=== PATIENT | male | born 1930 | race Caucasian/White ===

== ENCOUNTER 2017-02-16 19:48 | Inpatient (IN) ==
[2017-02-16] MEDS ORDERED: NS 1,000 ML ONE (20:36)
--- NOTE | 2017-02-16 20:37 | Diag Imaging Result Doc PS360 ---
EXAM: CHEST-PORTABLE - 02/16/2017 HISTORY: sepsis TECHNIQUE: Portable chest 2024 COMPARISON: None. FINDINGS: Inspiration is somewhat shallow. There is mild subsegmental atelectasis at the lung bases. There is no consolidation, pleural effusion, or pneumothorax identified. Heart size difficult to assess due to the shallow inspiration but is probably upper normal. IMPRESSION: Somewhat shallow inspiration with mild basilar subsegmental atelectasis. No evidence of pneumonia. Electronically signed by Duane Wright 02/16/2017 8:35 PM
[2017-02-16 20:38] LABS: ALLEN TEST YES; BE 0.3 mmoll (-3.0-3.0); BLOOD TYPE ARTERIAL; DRAW SITE R RADIAL; METHB 0.6 % (0.0-1.5); MODALITY CANNULA; O2(CT) 18.5 mL/dL (15.0-23.0); PCO2(98.6) 32 mmHg (35-45); PO2(98.6) 93 mmHg (60-100); SAMPLE BLOOD; THB 13.6 g/dL (11.5-17.4); pH(98.6) 7.47 (7.35-7.45)
[2017-02-16 20:46] LABS: BASO% 0.1 % (0.0-0.8); EOS# 0.08 X1000 (0.0-0.7); EOS% 0.6 % (0.0-10.0); HEMATOCRIT 40.2 % (42.0-52.0); HEMOGLOBIN 13.8 g/dL (14.0-18.0); IMM GRAN% 0.8 % (0.0-0.5); LYMPH# 0.37 X1000 (1.2-3.4); LYMPH% 2.8 % (20.5-51.1); MANUAL DIFF NEEDED? NO; MCH 33.7 PG (27-31); MCHC 34.3 g/dL (33-37); MCV 98.3 FL (81-99); MONO# 0.64 X1000 (0.11-0.59); MONO% 4.8 % (1.7-9.3); MPV 12.8 FL (7.4-10.4); NEUT% 90.9 % (42.2-75.2); PLT 95 X1000 (130-400); RBC 4.09 XMIL (4.7-6.1)
[2017-02-16 21:10] LABS: ALBUMIN 3.7 g/dL (3.5-5.0); CALCIUM 8.6 mg/dL (8.8-10.2); TOTAL BILIRUBIN 0.52 mg/dL (0.20-1.00)
[2017-02-16] MEDS ORDERED: ZOSYN 3.375 GM in NS 50 ML IV ONE (21:17)
[2017-02-16] MEDS ORDERED: LR 1,000 ML IV ONE ×3 (21:21→21:24)
[2017-02-16] MEDS ORDERED: LR 500 ML IV ONE (21:25)
[2017-02-16 21:35] LABS: URINE MICRO REVIEW NEEDED? NO; URINE SOURCE CATH
[2017-02-16 21:58] LABS: BILIRUBIN URINE NEGATIVE (NEGATIVE); BLOOD URINE MODERATE (NEGATIVE); COLOR YELLOW; GLUCOSE URINE NEGATIVE (NEGATIVE); LEUKOCYTES URINE MODERATE (NEGATIVE); NITRITE URINE NEGATIVE (NEGATIVE); PH URINE 5.5; PROTEIN URINE 50 mg/dL (NEGATIVE); TURBIDITY URINE HAZY (CLEAR); UR EPITHELIAL CELLS <10 /HPF (<10); URINE BACTERIA 4+ /HPF; URINE CULTURE NEEDED? YES; URINE RBC <10 /HPF (<10); UROBILINOGEN URINE NORMAL (NORMAL)
--- NOTE | 2017-02-16 22:02 | Diag Imaging Result Doc PS360 ---
EXAM: CT ABDOMEN/PELVIS W/O CONTRAST - 02/16/2017 HISTORY: distended abd- failed outpt UTI rx TECHNIQUE: Without contrast per request the referring provider. Low-dose protocol. COMPARISON: None. FINDINGS: There is an 8 mm stone in the proximal left ureter distal to the ureteropelvic junction. There is associated mild hydronephrosis with perinephric edema on the left. There is a tiny nonobstructing stone in the upper left kidney. There are small nonobstructing stones in the right kidney. There is no right hydronephrosis. There is a Jose catheter in urinary bladder. The urinary bladder chen appear diffusely thickened there is haziness of perivesicular fat. The possibility of urinary bladder cystitis cannot be excluded. There are no substantial analysis of the liver, spleen, or right adrenal gland identified. There is mild enlargement of the left adrenal gland. There is a 3.6 x 3.4 cm cystic appearing lesion which arises at the pancreatic body. The pancreas is otherwise somewhat atrophic. There are no calcified gallstones or pericholecystic inflammation identified. There are nonspecific small retroperitoneal lymph nodes. There are atherosclerotic calcifications noted. There are lumbar spine degenerative changes noted, multilevel spinal stenosis. There is no evidence of bowel obstruction. There is a moderate amount retained fecal debris in the colon and rectum suggesting constipation. There is colonic diverticulosis which is most prominent at the distal descending and proximal sigmoid colon. There is no evidence of diverticulitis. There is no free air, substantial free fluid, or abscess identified. IMPRESSION: 8 mm stone in proximal left ureter with mild left hydronephrosis and perinephric edema. Nonobstructing stones in bilateral kidneys. Probable urinary bladder cystitis. 3.6 x 3.4 cm cystic lesion arising at pancreatic body. Mild enlargement of left adrenal gland. Constipation. Uncomplicated colonic diverticulosis. Atherosclerotic calcifications. Lumbar spine degenerative changes with multilevel spinal stenosis. Electronically signed by Duane Wright 02/16/2017 10:00 PM
[2017-02-16] MEDS ORDERED: NS 1,000 ML IV ONE ×3 (22:09→22:15)
--- NOTE | 2017-02-16 22:19 | SEPSIS: TISSUE PERFUSION ASSMT ---
Sepsis: Tissue Perfusion Assmt - Physical Exam Assessment Date: 02/16/17 Time Assessment Initialized: 22:00 Vital Signs: Last Vital Signs Temp 102.6 F H 02/16/17 20:32 Pulse 91 H 02/16/17 20:32 Resp 32 H 02/16/17 20:32 BP 130/56 02/16/17 20:32 Pulse Ox 98 02/16/17 20:32 Height 5 ft 9 in Weight 240 lb Lung Sounds:: lungs clear Heart Sounds:: Regular Capillary Refill Time: Greater Than 2 Seconds Peripheral Pulse Evaluation:: radial (R): 1+, radial (L): 1+, dorsalis-pedis (R) : 1+, dorsalis-pedis (L): 1+, posterior tibialis (R): 0, posterior tibialis (L) : 0 Skin Exam:: pale - Impression Impression:: Tissue Perfusion Adequate - Plan Plan:: See Orders
[2017-02-16] MEDS ORDERED: MERREM 1 GM in NS 50 ML IV ONE (23:00)
[2017-02-16] MEDS ORDERED: ZOFRAN IV PRN (23:38)
[2017-02-16] MEDS ORDERED: TYLENOL PO PRN (23:38)
--- NOTE | 2017-02-17 02:55 | HISTORY AND PHYSICAL ---
A patient of Dr. Casey Peres. REASON FOR ADMISSION: Worsening confusion and weakness, and fever today. HISTORY OF PRESENT ILLNESS: Mr. Ja Pate is an 86-year-old man with a past medical history of hypertension, hypothyroidism, BPH, coronary artery disease, possible CHF, and hyperlipidemia who was brought in today by his after she noticed that her had become progressively weak over the last week or so. He has been treated on 3 separate occasions for a urinary tract infection with 3 different antibiotics by his primary care physician whom he saw today. While he was there, he was noted to be more confused (patient also has a history of mild dementia). He was then sent from the office home but by the time they got home, he could not get out of the car. He had a fever and he started having dry heaving episodes. At that juncture, they brought him to the ER. On arrival, his blood pressure was in the 90s/50 range. The patient also developed a fever on arrival to the ER. No chills. Unfortunately, there was no one at bedside and most of his history is obtained by the chart, the nurse taking care of him, and the ER physician. The patient is unable to give me any clear cut history. The only complaint he has per my review of systems is that he has a dry mouth. He feels thirsty and weak but he denies any pain or any other complaints. Thus, review of systems was extremely limited due to patient's cognition. There is no family at bedside to furnish me with any more information. ALLERGIES: Sulfa. MEDICATIONS: List not available at this time but I did look at the bottles and I noticed that he takes things such as Ranexa, Isordil, Zocor, levothyroxine, finasteride, terazosin, Diovan, hydrochlorothiazide. The patient has recently completed a course of Macrobid. FAMILY HISTORY: Could not be obtained. SOCIAL HISTORY: We we know he lives with his . He does not smoke, drink, or use drugs at this time. He usually gets by using a cane and walker. LAB WORK: The patient's chest film shows poor inspiratory effort but no overt infiltrate. CT scan of the abdomen shows an 8 mm stone in the left ureter with some hydronephrosis. There are also notable findings suggestive of cystitis of the bladder. He has a 3 x 3 cystic lesion of the pancreas, mild left adrenal enlargement, and constipation. EKG showed normal sinus rhythm with QT prolongation. Other lab work, troponin is 0.018. Lactate is less than 0.2. BUN 58, creatinine 3.5 (baseline is usually 1.6), sodium 135, glucose 173, calcium 8.6. Urinalysis is pending. Blood gas 7.47, pCO2 32, PO2 93 but the lactate here was 3.2. This is on 40%. EXAMINATION: General: Morbidly obese, elderly, man who is not in acute distress. Lying flat on his back. He is confused He is only oriented to person. Vital Signs: Temperature is 102.6 degrees, heart rate is 91, respirations initially were 32 in the ER but when I saw him were 24, blood pressure is 130/56, and 98% on 2 L. Psychiatric: His affect is somewhat flat. He is not depressed. His speech is clear. He does display evidence of bradyphrenia. HEENT: Head is normocephalic and atraumatic. Eyes, RADHA, EOMI. He is anicteric, not pale. ENT and oropharyngeal exam is notable for severe xerostomia. No oropharyngeal exudates. No central cyanosis. Neck: Short and thick. No JVD, carotid bruit, or thyromegaly. Skin: He has noticeable decreased skin turgor. There is moderate to severe decreased skin turgor. There is no acute rash, lesions, erythema. Chest: Clear to auscultation with good air entry in both lung montesinos. Cardiovascular: First and second heart sounds heard. No gallops, murmurs, or rubs. Rhythm is regular and tachycardic. Abdomen: Protuberant and soft. No focal areas of tenderness. No masses. Bowel sounds are hypoactive. Rectal: Examination is deferred at this time. Extremities: Patient has 1+ pitting edema up to the knee. Chronic hypopigmented changes of the shins. Pulses distally in all extremities are rated about 1+ and they are symmetrical. He has evidence of mild peripheral cyanosis in his fingers and distally are slightly cool with somewhat poor capillary refill. No clubbing. Neurological Examination: No focal deficits. No asterixis noted. Limited exam due to patient's cognition. No gross cranial nerve defects noted. Musculoskeletal: Examination is grossly normal. ASSESSMENT: 1. Urinary tract infection, recurrent. 2. Early sepsis. 3. Acute on chronic kidney injury. 4. Hypertensive heart and kidney disease. 5. Coronary artery disease. 6. Dementia. 7. Benign prostatic hypertrophy. 8. Hyperlipidemia. 9. Urolithiasis with left hydronephrosis. PLAN: We will consult Dr. Pate and Dr. Tolliver to address patient's obstructive uropathy and the recurrent urinary tract infection respectively. We will start patient on Merrem just in case patient has an ESBL pathogen, being that the patient has been treated with 3 different antibiotics without improvement. Follow up urine and blood cultures. Start patient on 30 mL/kg fluid to address early sepsis and then cautiously decrease the rate depending on his response and his urine output so that he does not go into pulmonary edema. We will withhold any home medications that are nephrotoxic which will include the valsartan and Ranexa. Patient has QT prolongation which could be attributed to the cardiotoxic effects of Ranexa. This will be held indefinitely until the patient gets better. We will also consider consulting a hand candy molder if the renal function does not improve in the next 48 hours. Urine indices have been sent and will need to be followed. Patient is borderline critical and for now, we will get him a room in the stepdown unit but if he deteriorates, he will need to go to the ICU. Critical care time on this patient will be estimated to be 40 minutes. cc: MD Casey Gallagher MD
[2017-02-17] MEDS: NS 1,000 ML IV SCH ×3 (03:30→16:27)
--- NOTE | 2017-02-17 03:37 | PROVIDER DOCUMENTATION ---
This chart was entered by Diamond Cazares Scribe, acting as scribe for Mike Humphreys MD. HPI-Neurological Disorder - General Chief Complaint: Altered Mental Status Stated Complaint: AMS Time Seen by Provider: 02/16/17 20:16 Source: family Allergies/Adverse Reactions: Patient Allergies Allergy/AdvReac Type Severity Reaction Status Date / Time Sulfa (Sulfonamide AdvReac Unknown Verified 02/16/17 21:13 Antibiotics) Home Medications: Home Medication List Medication Instructions Recorded Confirmed Last Taken Type Dutasteride 0.5 mg PO DAILY 02/16/17 02/16/17 02/16/17 History Famotidine 40 mg PO BID 02/16/17 02/16/17 02/16/17 History Furosemide 40 mg PO 3-4XDAY PRN 02/16/17 02/16/17 02/16/17 History Isosorbide Mononitrate E.r. [Imdur] 30 mg PO DAILY 02/16/17 02/16/17 02/16/17 History Levothyroxine [Synthroid] 50 microgm PO DAILY 02/16/17 02/16/17 02/16/17 History Ranolazine [Ranexa] 500 mg PO BID 02/16/17 02/16/17 02/16/17 History SIMVAstatin [Zocor] 40 mg PO QHS 02/16/17 02/16/17 02/16/17 History Sertraline [Zoloft] 50 mg PO DAILY 02/16/17 02/16/17 02/16/17 History Solifenacin Succinate [Vesicare] 5 mg PO BID 02/16/17 02/16/17 02/16/17 History Terazosin [Hytrin] 10 mg PO HS 02/16/17 02/16/17 02/16/17 History Terbinafine [Lamisil] 250 mg PO DAILY 02/16/17 02/16/17 02/16/17 History Valsartan/Hydrochlorothiazide 1 each PO DAILY 02/16/17 02/16/17 02/16/17 History [Valsartan-Hctz 160-12.5 mg Tab] - History of Present Illness-Neuro Nature of Presenting Problem: 86 year old M presents to the ED with a cc of altered mental status per . Pt has a hx of dementia but states that it is worse tonight. PT is being treated by PCP with Macrobid for a UTI. states yesterday, pt developed nausea, beltching and subjective fevers after dinner and that is when she realized he was not recognizing the family. Pt, per has continually worsened with his altered mental status. Severity: reports: moderate Onset/Duration: reports: 24 hours ago Timing: reports: still present, getting worse Character of Altered Mental Status: reports: disoriented Any recent trauma/injury?: reports: none Cognitive Baseline: alert but disoriented Similar Symptoms Previously?: No Recently seen or treated by another doctor?: No Review of Systems - Adult - REVIEW OF SYSTEMS - ADULT ROS:: ROS per family Constitutional: reports: fever. denies: chills Eyes: reports: no symptoms reported Ears, Nose, Mouth & Throat: reports: no symptoms reported Cardiovascular: denies: chest pain, palpitations Respiratory: denies: cough, shortness of breath Gastrointestinal: reports: see HPI, nausea. denies: abdominal pain, vomiting Genitourinary: reports: see HPI, other (recent treatment of UTi.) Musculoskeletal: denies: muscle aches, muscle weakness Integumentary: denies: skin sores/ulcer, skin thickening Neurological: reports: other (altered mental status). denies: slurred speech Psychiatric: reports: no symptoms reported Endocrine: reports: no symptoms reported Hematologic/Lymphatic: reports: no symptoms reported Allergic/Immunologic: reports: no symptoms reported All Other Systems: Reviewed and Negative Past History - Adult - PAST MEDICAL HISTORY-ADULT Review of Records: reports: Nursing Assessment Review, Medications Reviewed Major Childhood Illnesses: reports: denies history Cardiovascular: reports: CHF, HTN, hyperlipidemia Respiratory: reports: denies history Gastrointestinal: reports: GERD Obstetrical/Gynecological: reports: denies history Genitourinary: reports: denies history Musculoskeletal: reports: denies history Neurological: reports: dementia Endocrine/Immune: reports: thyroid disorder Other Conditions: reports: denies history - PRIOR SURGERIES/PROCEDURES Surgical/Procedure History: reports: none - IMMUNIZATION STATUS Childhood Immunizations: See Nurse Assessment Flu Vaccine: See Nurse Assessment - FAMILY HISTORY Family History: reviewed, not pertinent - SOCIAL HISTORY Smoking: quit greater than 1 year Substance Use: none/never Alcohol Use Frequency: never Living Situation: family Physical Exam- Neurological - Physical Exam-Neuro Initial Vital Signs Reviewed: Yes General Appearance: alert, other (alert to person and place) Eye Exam: bilateral eye: PERRL Respiratory: chest non-tender, crackles (bilateral basilar) Cardiovascular: tachycardia. negative: irregularly irregular Abdominal Exam: distended Extremity: pedal edema (2+ pitting to bilateral lower extremities), other (2cm cut on bilateral rucker. +2 pitting edema b.l -- chronic venous changes, brown pigmentation) hand i blocker Exam: negative: facial asymmetry Neurologic: grossly normal Integumentary: warm, other (chronic venous changes to bilateral legs) Progress - PLAN OF CARE/RESULTS Progress/Plan/Lab Results: Vital Signs - 8 hr 02/16/17 20:32 Temperature 102.6 F H Pulse Rate 91 H Respiratory Rate 32 H Blood Pressure 130/56 O2 Sat by Pulse Oximetry 98 Laboratory Results - last 24 hr 02/16/17 02/16/17 02/16/17 20:00 20:00 20:00 WBC 13.32 H RBC 4.09 L Hgb 13.8 L Hct 40.2 L MCV 98.3 MCH 33.7 H MCHC 34.3 RDW Std Deviation 11.9 Plt Count 95 L MPV 12.8 H Immature Gran % (Auto) 0.8 H Neut % (Auto) 90.9 H Lymph % (Auto) 2.8 L [place] % (Auto) 4.8 Eos % (Auto) 0.6 Baso % (Auto) 0.1 Immature Gran # (Auto) 0.10 H Neut # (Auto) 12.12 H Lymph # (Auto) 0.37 L [place] # (Auto) 0.64 H Eos # (Auto) 0.08 Baso # (Auto) 0.01 Specimen Type Sample Site pH pCO2 pO2 HCO3 Base Excess Oxyhemoglobin ABG O2 Sat (Calculated) ABG O2 Saturation ABG Carboxyhemoglobin ABG Methemoglobin Shaji Test A-a O2 Difference Total Hemoglobin Lactate Liter Flow Blood Gas Modality FiO2 % Sodium 135 L Potassium 4.0 Chloride 94 L Carbon Dioxide 22 L Anion Gap 19 BUN 58 H Creatinine 3.5 H Estimated GFR/1.73 m2 17 BUN/Creatinine Ratio 17 Glucose 173 H POC Glucose Calculated Osmolality 290 Calcium 8.6 L Total Bilirubin 0.52 AST 24 ALT 16 Alkaline Phosphatase 109 Troponin T 0.018 Total Protein 6.0 L Albumin 3.7 Globulin 2.3 Albumin/Globulin Ratio 1.6 Plasma Lactate Urine Source Urine Color Urine Turbidity Urine pH Ur Specific [place] Urine Protein Ur Glucose (Stick) Ur Ketones (Stick) Urine Blood Urine Nitrite Urine Bilirubin Urobilinogen Dipstick Urine Leukocytes Urine WBC (Auto) Urine RBC (Auto) U Epithel Cells (Auto) Urine Bacteria (Auto) 02/16/17 02/16/17 02/16/17 20:00 20:11 20:28 WBC RBC Hgb Hct MCV MCH MCHC RDW Std Deviation Plt Count MPV Immature Gran % (Auto) Neut % (Auto) Lymph % (Auto) [place] % (Auto) Eos % (Auto) Baso % (Auto) Immature Gran # (Auto) Neut # (Auto) Lymph # (Auto) [place] # (Auto) Eos # (Auto) Baso # (Auto) Specimen Type ARTERIAL Sample Site R RADIAL pH 7.47 H pCO2 32 L pO2 93 HCO3 25.1 Base Excess 0.3 Oxyhemoglobin 96.1 ABG O2 Sat (Calculated) 18.5 ABG O2 Saturation 97.0 ABG Carboxyhemoglobin 0.30 ABG Methemoglobin 0.6 Shaji Test YES A-a O2 Difference 152.0 Total Hemoglobin 13.6 Lactate 3.20 H Liter Flow 5.0 Blood Gas Modality CANNULA FiO2 % 40.0 Sodium Potassium Chloride Carbon Dioxide Anion Gap BUN Creatinine Estimated GFR/1.73 m2 BUN/Creatinine Ratio Glucose POC Glucose 179 H Calculated Osmolality Calcium Total Bilirubin AST ALT Alkaline Phosphatase Troponin T Total Protein Albumin Globulin Albumin/Globulin Ratio Plasma Lactate < 0.2 L Urine Source Urine Color Urine Turbidity Urine pH Ur Specific [place] Urine Protein Ur Glucose (Stick) Ur Ketones (Stick) Urine Blood Urine Nitrite Urine Bilirubin Urobilinogen Dipstick Urine Leukocytes Urine WBC (Auto) Urine RBC (Auto) U Epithel Cells (Auto) Urine Bacteria (Auto) 02/16/17 20:43 WBC RBC Hgb Hct MCV MCH MCHC RDW Std Deviation Plt Count MPV Immature Gran % (Auto) Neut % (Auto) Lymph % (Auto) [place] % (Auto) Eos % (Auto) Baso % (Auto) Immature Gran # (Auto) Neut # (Auto) Lymph # (Auto) [place] # (Auto) Eos # (Auto) Baso # (Auto) Specimen Type Sample Site pH pCO2 pO2 HCO3 Base Excess Oxyhemoglobin ABG O2 Sat (Calculated) ABG O2 Saturation ABG Carboxyhemoglobin ABG Methemoglobin Shaji Test A-a O2 Difference Total Hemoglobin Lactate Liter Flow Blood Gas Modality FiO2 % Sodium Potassium Chloride Carbon Dioxide Anion Gap BUN Creatinine Estimated GFR/1.73 m2 BUN/Creatinine Ratio Glucose POC Glucose Calculated Osmolality Calcium Total Bilirubin AST ALT Alkaline Phosphatase Troponin T Total Protein Albumin Globulin Albumin/Globulin Ratio Plasma Lactate Urine Source CATH Urine Color YELLOW Urine Turbidity HAZY Urine pH 5.5 Ur Specific [place] 1.020 Urine Protein 50 A Ur Glucose (Stick) NEGATIVE Ur Ketones (Stick) TRACE A Urine Blood MODERATE A Urine Nitrite NEGATIVE Urine Bilirubin NEGATIVE Urobilinogen Dipstick NORMAL Urine Leukocytes MODERATE A Urine WBC (Auto) 10-20 A Urine RBC (Auto) <10 U Epithel Cells (Auto) <10 Urine Bacteria (Auto) 4+ Orders Category Date Time Status Admit - [facility] Routine AdmDCTranf 02/16/17 23:38 Ordered Activity - Up with Assistance ORDERED Care 02/16/17 23:38 Active Cardiac Monitoring DIRECTED Care 02/16/17 20:20 Active Intake and Output-Strict ORDERED Care 02/16/17 23:38 Active Notify MD of + Sepsis Screen NOW Care 02/16/17 20:46 Active Nursing- MD Consult Request ROUTINE Care 02/16/17 23:38 Active Nursing- MD Consult Request ROUTINE Care 02/16/17 23:38 Active Vital Signs Order Q 8-HR ASSESS Care 02/16/17 23:38 Active Physician/Provider Consults Routine Cons 02/16/17 23:38 Ordered Physician/Provider Consults Routine Cons 02/16/17 23:38 Ordered Renal Diet Diet 02/16/17 22:06 Active CHEST-PORTABLE [RAD] Stat Exams 02/16/17 20:[address] ABDOMEN/PELVIS W/O CONTRAST [CT] Stat Exams 02/16/17 21:26 Completed ABG [RESP] Routine Lab 02/16/17 20:28 Completed BLOOD CULTURE [BLDCUL] Stat Lab 02/16/17 20:00 Results CBC WITH DIFF [HEME] Routine Lab 02/17/17 06:00 Ordered CBC WITH ELECTRONIC DIFF [HEME] Stat Lab 02/16/17 20:00 Completed COMPREHENSIVE METABOLIC PANEL [CHEM] Routine Lab 02/17/17 06:00 Ordered COMPREHENSIVE METABOLIC PANEL [CHEM] Stat Lab 02/16/17 20:00 Completed LACTATE, PLASMA [CHEM] Stat Lab 02/16/17 20:00 Completed LACTATE, PLASMA [CHEM] Stat Lab 02/17/17 01:50 Completed PHOSPHORUS [CHEM] Stat Lab 02/16/17 22:11 Completed TROPONIN T Stat Lab 02/16/17 20:00 Completed TSH Stat Lab 02/16/17 23:38 Completed UA NIMS W/REFLEX CULT [URINALYSIS] Stat Lab 02/16/17 20:43 Completed UR CREAT RANDOM [URCHEM] Stat Lab 02/16/17 23:38 Uncollected UR SODIUM [URCHEM] Stat Lab 02/16/17 23:38 Uncollected URINE CULTURE [RM] Routine Lab 02/16/17 22:00 Received 0.9% Sodium Chloride Inj [Ns] 1,000 ml Med 02/16/17 20:36 Discontinued .ROUTE As Directed 0.9% Sodium Chloride Inj [Ns] 1,000 ml Med 02/16/17 23:38 Active IV 125 mls/hr 0.9% Sodium Chloride Inj [Ns] 1,000 ml Med 02/16/17 22:09 Discontinued IV 999 mls/hr 0.9% Sodium Chloride Inj [Ns] 1,000 ml Med 02/16/17 22:10 Discontinued IV 999 mls/hr 0.9% Sodium Chloride Inj [Ns] 1,000 ml Med 02/16/17 22:15 Discontinued IV 999 mls/hr Acetaminophen [Tylenol] Med 02/16/17 23:38 Active 650 mg PO Q6H PRN PRN Heparin Med 02/17/17 09:00 Active 5,000 unit SUBQ Q12HR Isosorbide Mononitrate E.r. [Imdur] Med 02/17/17 09:00 Discontinued 30 mg PO DAILY Lactated Ringers Inj [Lr] 1,000 ml Med 02/16/17 21:21 Discontinued IV 999 mls/hr Lactated Ringers Inj [Lr] 1,000 ml Med 02/16/17 21:24 Discontinued IV 999 mls/hr Lactated Ringers Inj [Lr] 1,000 ml Med 02/16/17 21:24 Discontinued IV 999 mls/hr Lactated Ringers Inj [Lr] 500 ml Med 02/16/17 21:25 Discontinued IV 999 mls/hr Meropenem [Merrem] 1 gm Med 02/16/17 23:00 Discontinued 0.9% Sodium Chloride Inj [Ns] 50 ml IV NOW Meropenem [Merrem] 1 gm Med 02/17/17 12:00 Active 0.9% Sodium Chloride Inj [Ns] 50 ml IV Q12H Ondansetron [Zofran] Med 02/16/17 23:38 Active 4 mg IV Q4H PRN PRN Piperacillin/Tazobactam [Zosyn] 3.375 gm Med 02/16/17 21:17 Discontinued 0.9% Sodium Chloride Inj [Ns] 50 ml IV NOW Transfer/Admit Order [TRANSFER] Routine Transfer 02/16/17 22:04 Completed Result Diagrams: 02/16/17 20:00 02/16/17 20:00 Departure - Departure Date of Disposition Decision: 02/16/17 Time of Disposition Decision: 21:30 DIAGNOSIS: Sepsis, UTI (urinary tract infection) Disposition: ADMITTED INPATIENT Certified Medical Emergency: Emergent Condition: Fair - Critical Care Note This patient required my direct & personal management of CC.: No Comments: sepsis protocol was started. IVF 30cc/kg was ordered. Pt was given zosyn.,,Case was presented to Dr Leon for admission Attestation - Physician/ JOANIE Attestation Patient care was provided by Advanced Practice Provider:: No The physician spent face to face time with patient:: Yes Advanced Practice Provider documentation review:: Supervising physician onsite and consulted in the evaluation and care of this patient. The physician did have a face to face encounter with the patient. This chart was documented by the indicated scribe, (Diamond Cazares Scribe) and accurately reflects the services I performed and decisions made by me, Mike Humphreys MD, as attested by the provider's signature.
[2017-02-17] MEDS ORDERED: NS 500 ML IV SCH ×2 (05:29→06:08)
[2017-02-17 06:03] LABS: BASO% 0.1 % (0.0-0.8); EOS# 0.16 X1000 (0.0-0.7); HEMOGLOBIN 12.3 g/dL (14.0-18.0); IMM GRAN# 0.59 X1000 (0.0-0.04); IMM GRAN% 3.7 % (0.0-0.5); LYMPH# 0.56 X1000 (1.2-3.4); LYMPH% 3.6 % (20.5-51.1); MANUAL DIFF NEEDED? YES; MCH 33.3 PG (27-31); MCHC 33.2 g/dL (33-37); MCV 100.3 FL (81-99); MONO# 0.59 X1000 (0.11-0.59); MONO% 3.7 % (1.7-9.3); NEUT% 87.9 % (42.2-75.2); PLT 64 X1000 (130-400); RBC 3.69 XMIL (4.7-6.1)
[2017-02-17] MEDS: LEVOPHED 8 MG in D5 1/2 NS 250 ML IV SCH ×2 (06:06→07:42)
[2017-02-17] MEDS ORDERED: NS 500 ML IV ONE (06:11)
[2017-02-17 06:19] LABS: ALBUMIN 3.2 g/dL (3.5-5.0); CALCIUM 8.2 mg/dL (8.8-10.2); POTASSIUM 4.3 mmol/L (3.5-5.1); TOTAL BILIRUBIN 0.51 mg/dL (0.20-1.00); TOTAL PROTEIN 5.4 g/dL (6.3-8.3)
[2017-02-17 07:30] LABS: BANDS 4 % (0-1); EOS 2 % (1-10); MONO 6 % (1-9)
[2017-02-17 07:31] LABS: LYMPHS 8 % (21-51)
--- NOTE | 2017-02-17 08:48 | CONSULTATION ---
DATE OF CONSULTATION: 02/17/2017 CONCLUSION: The patient has a gram-negative lorenzo urinary tract infection with an associated bacteremia due to the presence of a left ureteral stone. The patient has an altered mental status. I think this is due to his presumed sepsis. The patient has developed renal failure. I think again this is increased in part due to his acute infection and possible dehydration. RECOMMENDATIONS: I agree with decision to treat the patient with meropenem pending further culture results. The dose has been modified because of the patient's renal failure. DISCUSSION: The patient is unable provide a history. The history was taken from his . She reports to me that for the past 2-3 days he had an altered mental status. There was some coughing, some nausea with dry heaves. He also had fever and red face. He has had studies done in the emergency room[place] [address], hemoglobin 12.3 and platelet count 64,000. Creatinine is 4.2. GFR is 14, liver function studies are normal. Urinalysis shows white cells and bacteria. The patient's blood cultures are growing gram negative rods. The patient's urine culture is pending. Chest x-ray shows bibasilar atelectasis. CT scan of the abdomen and pelvis shows a left ureteral stone with the presence of hydronephrosis. Other stones are present in the kidneys as well. PAST MEDICAL HISTORY/REVIEW OF SYSTEMS: This was unobtainable from the patient. It was taken from his . Eyes and ears: Patient can see okay, but he has decreased hearing. Respiratory: The patient was not coughing or short of breath. Cardiac: No complaints of chest pain or palpitations. GI: The patient was having some nausea and dry heaves. He was not having diarrhea. : According to the the patient did not seem to have any urinary symptoms such as dysuria or flank pain. Bones, joints, muscles: No swollen joints or myalgias. Endocrine: Patient does not have diabetes but he does have thyroid disease. Neurologic: The patient's said that he has dementia. He does not have any loss of motor or sensory function. Integument: No rashes. PREVIOUS HOSPITALIZATIONS AND OPERATIONS: He was admitted as a child with mastoiditis. He once was admitted with back pain. MEDICAL DISEASES: Positive for hypertension, dementia, hyperlipidemia, sleep apnea, and benign prostatic hypertrophy. Patient also has decreased hearing. Hypothyroidism. INFECTIOUS DISEASE HISTORY: Negative for pneumonia and UTI. FAMILY HISTORY: Positive for hypertension, cancer and dementia. SOCIAL HISTORY: The patient is . He lives in [place]. ALLERGIES: He is allergic to sulfa. HOME MEDICATIONS: Include valsartan/hydrochlorothiazide, famotidine, VESIcare, Zoloft, Hytrin, dutasteride, Synthroid, Zocor, Imdur, furosemide, Lamisil and Ranexa. Patient is . He smokes cigarettes but stopped many years ago. He does not drink alcoholic beverages or abuse drugs. He does wear a CPAP mask at night. PHYSICAL EXAMINATION: Vital Signs: Temperature is 99.7 degrees. Pulse 76, respirations 22, blood pressure 70/57. General: Ill-appearing, elderly male. He does not appear to be in any acute distress. Head, eyes, ears, nose, and throat: He appeared to have some decrease in his hearing. He did track with his eyes. His face was erythematous. Neck: No meningismus. Lungs: Clear to auscultation. Cardiovascular: Heart rate is regular. Abdomen: Slightly protuberant. It is soft. There is no tenderness and there is no flank tenderness. Genitalia: Patient has a Jose catheter in place. Neurologic: Patient is awake. He was not oriented as to time or place. He did move his extremities to request. There was no tremor. Integument: No rash noted. Thank you for the consult. cc: Chandler Tolliver MD
[2017-02-17] MEDS ORDERED: IMDUR PO SCH (09:00)
--- NOTE | 2017-02-17 09:18 | CONSULTATION ---
DATE OF CONSULTATION: 02/17/2017 ATTENDING AND REFERRING PHYSICIAN: Hospitalist. HISTORY OF PRESENT ILLNESS: This 86-year-old male has been treated for urinary tract infections as an outpatient for the last several weeks. The patient is somewhat confused. His states he has had increased frequency and pelvic area pains. He became acutely ill yesterday and when seen in the emergency room, his blood pressure was in the 90/[address] stone search revealed an 8 mm, left proximal stone with moderate obstruction. Also noted were small nonobstructing bilateral renal stones and thickened bladder wall consistent with cystitis. Blood cultures were obtained and a Gram stain revealed gram negative rods. The patient has been followed in the [facility] for several years. He was last seen in November of 2016. His PSA at that time was 0.12. He has a nodule on the left side of his prostate. He had a prostate ultrasound and biopsies in 2012. He is currently on Avodart at 0.5 mg a day, Hytrin at 10 mg a day, and VESIcare 5 mg twice a day four urinary urgency. His creatinine was elevated at 4.2. The patient states he may feel a little better. He has never passed a kidney stone before. He states this is the 1st time he has ever had problems with urinary infections. PAST MEDICAL HISTORY: Hypertension, coronary artery disease, hypothyroidism, elevated cholesterol. CURRENT MEDICATIONS: Avodart, Hytrin, VESIcare, famotidine, Lasix, isosorbide, levothyroxine, Ranexa, Lamisil, valsartan/hydrochlorothiazide 160/12.5. PAST SURGICAL HISTORY: Teeth extraction, tonsillectomy, transrectal prostate ultrasound and biopsies. SOCIAL HISTORY: No tobacco or alcohol use. ALLERGIES: He is allergic to sulfa. REVIEW OF SYSTEMS: He states, along with his , that he is usually in good health. There is no history of diabetes, strokes, or seizures. PHYSICAL EXAMINATION: General: Obese, age apparent, normally developed, white male who is cooperative. HEENT: Normal for age. Lungs: Clear. Cardiovascular: Regular rate and rhythm. Abdomen: Obese, soft, nontender. No hepatosplenomegaly or masses. Normal bowel sounds. Back: No CVA tenderness. : Jose catheter in place. Uncircumcised male. Both testes are down. Small bilateral hydroceles. No inguinal hernias. Rectal Examination: Deferred. In November of 2016, about 60-70 g with a nodule on the left side. Extremities: No clubbing, cyanosis, or edema. Neurologic: No focal deficits. LABORATORY EVALUATION: He has a white count of 15.74, hemoglobin 12.3, hematocrit of 37, platelets are 64,000. Blood cultures and urine cultures are pending. The Gram stain from the blood culture had gram-negative rods. IMPRESSION: 1. Sepsis syndrome secondary to a urinary tract infection. 2. Bilateral nonobstructing renal stones. 3. An obstructing left proximal ureteral stone. PLAN: Cystoscopic exam, place left double-J stent. After his infection is resolved, schedule left extracorporeal shockwave lithotripsy. The planned procedure, benefits versus risks, possible complications, including bleeding, continued infection, need for further surgery were discussed with the patient and . They seemed to understand and desire to proceed. cc: Akil Pate MD
[2017-02-17] MEDS ORDERED: DIPRIVAN 1% ONE (09:36)
[2017-02-17] MEDS ORDERED: XYLOCAINE-MPF 2% ONE (09:37)
[2017-02-17] MEDS ORDERED: QUELICIN (DOSE) ONE (09:37)
[2017-02-17] MEDS ORDERED: ROBINUL ONE (09:37)
[2017-02-17] MEDS ORDERED: AMIDATE ONE (09:38)
[2017-02-17] MEDS ORDERED: PEPCID ONE (09:43)
[2017-02-17] MEDS ORDERED: EPHEDRINE ONE (09:57)
[2017-02-17] MEDS ORDERED: VERSED ONE (10:15)
[2017-02-17] MEDS ORDERED: NS 1,000 ML ONE ×2 (10:37→11:43)
--- NOTE | 2017-02-17 11:11 | Diag Imaging Result Doc PS360 ---
EXAM: CHEST-PORTABLE HISTORY: septic shock TECHNIQUE: AP portable at 1050 COMMENT: There is an endotracheal tube with its tip slightly below the thoracic inlet. The inspiration is suboptimal. No focal opacity is present to suggest pneumonia. The appearance of the chest has not changed appreciably since 02/16/2017. IMPRESSION: Stable chest. Electronically signed by Td Jo 02/17/2017 11:09 AM
--- NOTE | 2017-02-17 11:16 | Diag Imaging Result Doc PS360 ---
EXAM: FLUROSCOPY CYSTO HISTORY: PLACEMENT LT. STENT TECHNIQUE: A left ureteral stent was placed by Dr. Pate. COMMENT: No contrast was administered. IMPRESSION: Left ureteral stent placement. Electronically signed by Td Jo 02/17/2017 11:14 AM
[2017-02-17 11:20] LABS: ALLEN TEST YES; BE -10.5 mmoll (-3.0-3.0); BLOOD TYPE ARTERIAL; DRAW SITE R RADIAL; METHB 0.4 % (0.0-1.5); O2(CT) 15.8 mL/dL (15.0-23.0); PCO2(98.6) 44 mmHg (35-45); PO2(98.6) 68 mmHg (60-100); SAMPLE BLOOD; SAO2 93.1 % (95.0-100.0); SRATE 12 BPM; THB 12.1 g/dL (11.5-17.4); TVOL 700 mL
[2017-02-17 11:21] LABS: MODALITY VENTILATOR
[2017-02-17] MEDS ORDERED: LR 1,000 ML ONE ×2 (11:30→12:15)
--- NOTE | 2017-02-17 11:43 | OPERATIVE NOTE ---
PROCEDURE DATE: 02/17/2017 SURGEON: Akil Pate MD. PREOPERATIVE DIAGNOSIS: Septic syndrome secondary to urinary infection with an obstructing left proximal ureteral stone. POSTOPERATIVE DIAGNOSIS: Septic syndrome secondary to urinary infection with an obstructing left proximal ureteral stone. PROCEDURE PERFORMED: Cystoscopic exam, placement of left double-J stent. ANESTHESIA: General endotracheal. FINDINGS: Cystoscopic exam: Urethra-greater than 21-Upper Sorbian without stricture. Prostate-mild hypertrophy of the lateral lobes, elevated bladder neck, length approximately 4 cm. Bladder- normal ureteral orifices bilaterally. Grade 2-3 trabeculations. No papillary lesions, cellules or diverticula. After a wire was placed through the left ureter, a large amount of pus and brownish discharge occurred, indicating complete obstruction of the left kidney. INDICATION FOR PROCEDURE: This 86-year-old male developed lower abdominal pain and fever. He then developed confusion. Evaluation revealed urosepsis with an obstructing left proximal stone. DESCRIPTION OF PROCEDURE: After informed consent was obtained from the patient and family, and him receiving IV antibiotics, he was taken to the main OR cystoscopy room and placed in the supine position. General endotracheal anesthesia was achieved. He was then placed in a low lithotomy position, prepped and draped in the usual sterile fashion for a cystoscopic exam. A 21-Upper Sorbian cystoscope was passed through the patient's urethra, prostate, and into the bladder with findings noted above. A 0.035 Zip wire was passed through the cystoscope, engaged in the left ureteral orifice, and advanced up the ureter. After some manipulation, it was able to be pushed past the obstructing stone. Again, a large amount of pus and brownish debris came out around that wire. A 7-Upper Sorbian, 24 cm double-J stent was passed over the Zip wire and up into the kidney. The renal end was verified by fluoroscopic exam, bladder end directly visualized. The very cloudy brown efflux continued after the stent was placed. The bladder was left distended. The cystoscope was removed. A 16-Upper Sorbian Jose catheter was passed through the patient's urethra, prostate, and bladder without difficulty. Then 10 mL of sterile water were placed in the Jose's balloon. Jose was placed to gravity drain. Rectal exam was performed that revealed a nodule on the left side of his prostate but otherwise smooth. He tolerated the procedure well. Estimated blood loss was less than 1 mL. He was taken to the recovery room in good condition. cc: Akil Pate MD
[2017-02-17] MEDS ORDERED: NS NEB INH SCH (12:15)
[2017-02-17] MEDS ORDERED: VALIUM ONE (12:29)
[2017-02-17] MEDS ORDERED: SODIUM BICARBONATE IV ONE (12:30)
[2017-02-17] MEDS ORDERED: LR IV ONE (12:30)
--- NOTE | 2017-02-17 13:31 | PROGRESS NOTE ---
DATE: 02/17/2017 SUBJECTIVE: Mr. Ja Pate is an 86-year-old male, who is currently intubated and unable to verbally respond. He did follow some simple commands. He is postoperative for placement of left double-J stent. There was some concern of last known time of having something to eat or drink as the patient is being unable to extubate postoperatively. According to nursing staff there were still residual of eggs in the mouth. We will consult Dr. Brumfield for critical care and ventilator management. Also, according to Dr. Pate who had contacted Dr. Au, there was noted to be very cloudy brown efflux after the stent was placed. Dr. Tolliver is also following. OBJECTIVE: Vital Signs: Temperature 97.6 degrees, heart rate 92, respiratory rate 12, blood pressure 148/60, O2 saturation 100% on ventilator management. General: Mr. Ja Pate is an 86- year-old male. He is starting to wake post sedation and is currently on the ventilator. HEENT: Atraumatic, normocephalic. Pupils equal, round, reactive to light, but sluggish. He has an oral endotracheal tube currently in place. Mucous membranes are dry. Neck: Trachea midline. Cardiovascular: S1, S2. Regular rate and rhythm. No rubs, gallops, murmurs. No JVD or carotid bruits. +1 lower extremity edema. +1 dorsalis pedal pulses, +2 radial pulses. Pulmonary: Decreased in the bases, but clear throughout. GI: Currently has an OG tube to low wall suction with brown drainage. : Jose in place with dark urine, cloudy. Extremities : Generalized weakness. He has about a 3/5 strength in the upper extremities. Trace movement in the lower extremities secondary to sedation at this time. 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 Follows some simple commands. Skin: Warm, dry, intact. LABORATORY DATA: White blood cells 15,000, hemoglobin 12, hematocrit 37, platelet count 64. ABGs: SIMV 12 700; tidal volume 100%; PEEP of 5; 7.20 pH; pCO2 44; PO2 68; bicarbonate 16; base excess -10. O2 saturation 92%. Stat lactate 4.6. Sodium 138, potassium 4.3, BUN 65, creatinine 4.2, glucose 120, calcium 8.2, phosphorus 3.2, bilirubin 0.51, AST 26, ALT 14, protein 5.4, albumin 3.2, plasma lactate is 3.4, TSH is 1.48. IMAGING: Chest x-ray:. Stable chest with endotracheal tube in place. PROCEDURES: Double-J stent placed by Dr. Akil Pate with cystoscopic exam. Apparently there was a large amount of pus and brownish discharge after stent was placed in the left ureter which indicated complete obstruction of the left kidney. ASSESSMENT AND PLAN: 1. Urolithiasis with left hydronephrosis and complete obstruction, now status post double-J stent via Dr. Akil Pate. Will continue with intravenous antibiotic meropenem as it covers gram- negative and gram-positive coverage. 2. Urinary tract infection, which is recurrent. Currently urine culture shows gram-negative lorenzo. Again, will continue with meropenem and Dr. Tolliver is on board. 3. Septic shock. The patient was on Levophed prior to transfer to the operating room. Currently only on intravenous fluid hydration. Blood pressure is more stable. Continue intravenous antibiotics and aggressive intravenous fluid hydration. 4. Acute postoperative respiratory failure. There is question as to whether the patient had eaten prior to surgery. We will have to monitor for risk of aspiration pneumonia. Dr. Brumfield has been consulted for ventilator management and critical care management. We will add nebulizers. Continue with antibiotic coverage. 5. Acute kidney injury, now chronic kidney disease stage III. Again, will continue with intravenous fluid hydration and trend daily. 6. Dementia, stable. Follow simple commands. 7. Benign prostatic hyperplasia. Continue home medication. Dictated by JHONTAAN Richter for Pako Buckley MD Addendum: Patient seen and examined by myself. Agree with JHONATAN note. It reflects my assessment and plan. Patient remains critically ill for septic shock secondary to pyelonephritis. Also developed acute renal failure secondary to urolithiasis. Will continue with IV fluids, IV antibiotics and will continue to monitor in ICU cc: JHONATAN Richter MD [facility]
[2017-02-17 13:57] LABS: ALLEN TEST YES; BLOOD TYPE ARTERIAL; DRAW SITE R RADIAL; METHB 0.3 % (0.0-1.5); O2(CT) 17.4 mL/dL (15.0-23.0); PCO2(98.6) 37 mmHg (35-45); PO2(98.6) 370 mmHg (60-100); SAMPLE BLOOD; SAO2 97.9 % (95.0-100.0); pH(98.6) 7.31 (7.35-7.45)
[2017-02-17 14:00] LABS: MODALITY VENTILATOR
[2017-02-17] MEDS: MERREM 1 GM in NS 50 ML IV SCH (14:10)
[2017-02-17] MEDS: XOPENEX NEB INH SCH ×3 (15:30→23:07)
[2017-02-17] MEDS: ATROVENT NEB INH SCH ×3 (15:30→23:07)
[2017-02-17] MEDS: DIPRIVAN 1% 1,000 MG/100 ML BOTTLE IV SCH ×3 (15:40→21:00)
[2017-02-17] MEDS: FLOMAX PO SCH (15:42)
[2017-02-17] MEDS: HEPARIN SUBQ SCH ×2 (16:26→21:05)
[2017-02-17] MEDS ORDERED: NS 1,000 ML IV SCH (19:42)
[2017-02-18] MEDS: DIPRIVAN 1% 1,000 MG/100 ML BOTTLE IV SCH ×3 (00:22→06:15)
[2017-02-18] MEDS: MERREM 1 GM in NS 50 ML IV SCH ×2 (00:24→11:03)
[2017-02-18] MEDS: XOPENEX NEB INH SCH ×6 (02:37→22:51)
[2017-02-18] MEDS: ATROVENT NEB INH SCH ×6 (02:37→22:51)
--- NOTE | 2017-02-18 03:38 | CONSULTATION ---
DATE OF CONSULTATION: 02/17/2017 REQUESTING PHYSICIAN: Pako Buckley MD REASON FOR CONSULTATION: Respiratory failure. HISTORY OF PRESENT ILLNESS: Mr. Pate is an 86-year-old white male with history of dementia, history of diastolic heart failure, history of BPH, who is currently being treated by his primary care physician for a urinary tract infection. The patient became more confused and his brought him to the emergency room. The patient was having difficulty with fevers and dry heaves and was subsequent hypotensive upon arrival to the emergency room. CT scan of the abdomen and pelvis revealed an 8 mm stone obstructing the left ureter causing hydronephrosis with perinephric edema. The patient was taken to the operating room by Dr. Pate and a left double-J stent was placed. The patient remains on mechanical ventilation and vasopressors and his urine output has markedly diminished. He has received 7 L of IV resuscitation since his arrival to the emergency room. PAST MEDICAL HISTORY: 1. Dementia. 2. Hypertension. 3. BPH. 4. Recurrent urinary tract infections. 5. Hypothyroidism. 6. Dyslipidemia. 7. Obstructive sleep apnea on CPAP. SOCIAL HISTORY: He lives with his . Never smoker by report. FAMILY HISTORY: Positive for dementia and hypertension and unspecified cancers. REVIEW OF SYSTEMS: Cannot be obtained. PHYSICAL EXAMINATION: General: Reveals an obese, white male, who is sedated on propofol on mechanical ventilation. He is currently on Levophed at 10 mcg/min. BP 115/72, heart rate 85 and regular, oxygen saturation 98%. HEENT: Pupils are equal and reactive. Oropharynx evaluation is limited with endotracheal tube in place. Neck: Supple. Chest: Reveals good air entry without definite wheeze or rhonchi. Cardiac Exam: Distant heart sounds. Normal S1, normal S2. Abdomen: Obese and soft. Extremities: Cool to the touch. LABORATORIES: Chest x-ray reveals shallow inspiration but no acute infiltrates. Arterial blood gas on 100% FiO2 revealed a pH 7.20, pCO2 of 44, PO2 of 68 with a lactate of 4.6, white blood count 15.74, hemoglobin 12.3, platelet count 64,000. Chemistry 138, potassium 4.3, chloride 98, bicarbonate 24, BUN 65, creatinine 4.2. Urine culture is growing a gram-negative lorenzo. Two blood cultures are also growing gram-negative rods. IMPRESSION: An 86-year-old with: 1. Acute hypoxemic respiratory failure. 2. Nephrolithiasis. 3. Pyelonephritis. 4. Gram-negative bacteremia. 5. Septic shock, on vasopressors. 6. Leukocytosis. 7. Thrombocytopenia. 8. Acute renal failure. RECOMMENDATIONS: 1. Continue full ventilatory support. 2. Continue current fluids at 100 mL/h. The patient has acute renal failure and may require dialysis. 3. Continue antibiotics under the direction of Dr. Chandler Tolliver. 4. Routine bronchodilators. 5. Routine gastric acid suppression. 6. Discharge recommendations pending hospital course. cc: Ja Brumfield MD
[2017-02-18 04:17] LABS: UR CREAT RANDOM 64.2 mg/dL (14-26)
[2017-02-18 04:26] LABS: ALLEN TEST YES; BE -4.3 mmoll (-3.0-3.0); BLOOD TYPE ARTERIAL; DRAW SITE R RADIAL; O2(CT) 15.2 mL/dL (15.0-23.0); PCO2(98.6) 33 mmHg (35-45); PO2(98.6) 100 mmHg (60-100); SAMPLE BLOOD; SAO2 98.4 % (95.0-100.0); SRATE 12 BPM; TVOL 700 mL; pH(98.6) 7.39 (7.35-7.45)
[2017-02-18 04:27] LABS: MODALITY VENTILATOR
[2017-02-18 05:33] LABS: HEMATOCRIT 32.5 % (42.0-52.0); HEMOGLOBIN 11.1 g/dL (14.0-18.0); MCH 34.8 PG (27-31); MCHC 34.2 g/dL (33-37); MCV 101.9 FL (81-99); MPV 14.7 FL (7.4-10.4); RBC 3.19 XMIL (4.7-6.1)
[2017-02-18 05:41] LABS: ALBUMIN 2.2 g/dL (3.5-5.0); CALCIUM 7.1 mg/dL (8.8-10.2); POTASSIUM 4.7 mmol/L (3.5-5.1); TOTAL BILIRUBIN 0.57 mg/dL (0.20-1.00); TOTAL PROTEIN 4.6 g/dL (6.3-8.3)
[2017-02-18] MEDS: LEVOPHED 8 MG in D5 1/2 NS 250 ML IV SCH (06:08)
--- NOTE | 2017-02-18 07:17 | Diag Imaging Result Doc PS360 ---
EXAM: CHEST-PORTABLE HISTORY: respiratory failure TECHNIQUE: AP portable at 0500 COMMENT: There is an endotracheal tube with its tip slightly below the thoracic inlet and an NG tube which passes below the diaphragm. There is atelectasis present in the right lower lobe. The inspiration is generally suboptimal as it was on 02/17/2017. IMPRESSION: Minimal subsegmental atelectasis in the right base. Electronically signed by Td Jo 02/18/2017 7:15 AM
--- NOTE | 2017-02-18 08:10 | PROGRESS NOTE ---
DATE: 02/18/2017 PRESENT ILLNESS: Patient is status post placement of a left double-J stent for gram-negative lorenzo urinary tract infection with bacteremia. MEDICATIONS: The patient is taking meropenem pending culture results. PHYSICAL EXAMINATION: Vital Signs: Temperature is 97.1 degrees, pulse 68, respirations 12, blood pressure 90/49. General: This is an ill-appearing, elderly male. He is in no acute distress at this time. Lungs: Clear to auscultation. Cardiovascular: Heart rate was regular. Abdomen: And flank soft and nontender. ASSESSMENT AND PLAN: Patient has gram-negative lorenzo urosepsis. The plan is to continue meropenem depending on the cultures of blood and urine for the gram-negative lorenzo that has been isolated. COMORBIDITIES: Are that he is elderly and he also has kidney stones. ADDENDUM: See my additional dictated note I just finished. cc: Chandler Tolliver MD MTDD
[2017-02-18] MEDS: HEPARIN SUBQ SCH ×2 (08:24→21:37)
[2017-02-18] MEDS: FLOMAX PO SCH (08:30)
[2017-02-18] MEDS ORDERED: NS 1,000 ML IV SCH (08:31)
--- NOTE | 2017-02-18 08:48 | PROGRESS NOTE ---
DATE: 02/18/2017 ADDENDUM: LABORATORY DATA AND X-RAY: FINDINGS: The CBC today shows a white count of 21,670. Hemoglobin 11.1, and platelet count 40,000. The patient's blood gases show a pH of 7.39, a PO2 of 100, pCO2 of 33. Creatinine is 3.8. GFR is 15. Blood and urine are both growing gram negative rods which have not yet been identified. Exactly why the patient's white count is elevated I am not certain, but for right now, I am going to continue with the current antibiotic, pending the culture result. cc: Chandler Tolliver MD
--- NOTE | 2017-02-18 09:10 | PROGRESS NOTE ---
DATE: 02/18/2017 SUBJECTIVE: Patient is sedated and intubated. No acute issues as per nursing staff overnight. OBJECTIVE: Vital Signs: Temperature 97.7 degrees, heart rate 70, respiratory rate 12, blood pressure 122/58, O2 saturation 96% on mechanical ventilator at FiO2 of 40%. General: This is a 89-year-old male, lying in bed, in no acute distress, sedated and intubated. Eyes: Pupils equal, round, reactive to light and accommodation. Neck: Supple. No JVD noted. No carotid bruits. No lymphadenopathy. No thyromegaly. Cardiovascular: S1, S2 heard. No murmurs, gallops, or rubs. Regular rate and rhythm. Respiratory: There is globally decreased breath sounds noted. No wheezing, and no crackles. The patient is not using any accessory muscles or having work of breathing. GI: The patient has an OG tube with brown drainage. Abdomen: Soft. Bowel sounds present. No organomegaly noted. : Jose catheter in place with dark urine. Not good urine output that has been recorded in the chart. Extremities: No clubbing, cyanosis, or edema. Peripheral pulses present in both legs. Neurologic: Patient is sedated and intubated. LABORATORY DATA: White cell count 21.67, hemoglobin 11.1, hematocrit 32.5, platelets 40, with the ABG shows pH 7.39, with pCO2 33. BMP that shows creatinine 3.8, and BUN 71, calcium 7.1, and albumin 2.2. Urine culture showed gram-negative rods. Blood cultures also shows gram-negative rods. Blood sensitivity is not back yet. ASSESSMENT AND PLAN: 1. Acute respiratory failure. Patient is still intubated. ABG from today shows a good gas exchange. The patient actually has an FiO2 of 40%. Dr. Brumfield from Pulmonary is following this patient. We will follow his recommendations. 2. Septic shock secondary to urinary tract infection. Urine culture and blood culture shows gram- negative rods. Patient has been started since admission on meropenem. Dr. Tolliver, from infectious disease, is following this patient and he has agreed with the treatment. Regarding the septic shock, the patient is still on small doses of Levophed 2 mcg/ hour. At this point, we are going to increase the rate of IV fluids from 50-125 mL/h. Hopefully, we will be able to wean off vasopressors. 3. Pyelonephritis. As we mentioned before, patient is on antibiotics as above. Cultures are still pending. 4. Acute kidney injury. The patient's renal function continues to get worse. At this time, because this patient is not making any urine, we are going to call nephrology and will go from there. 5. Dementia. This condition is stable. The patient is sedated and intubated at this time. 6. Benign prostatic hyperplasia. Continue with home medications. 7. Ureterolithiasis with left hydronephrosis, status post double J stent placed. Urology on board. Will follow recommendations. cc: Pako Buckley MD MTDD
[2017-02-18 10:12] LABS: BE -5.7 mmoll (-3.0-3.0); BLOOD TYPE ARTERIAL; METHB 0.7 % (0.0-1.5); O2(CT) 16.4 mL/dL (15.0-23.0); PCO2(98.6) 36 mmHg (35-45); PO2(98.6) 103 mmHg (60-100); SAMPLE BLOOD; SAO2 97.2 % (95.0-100.0); pH(98.6) 7.34 (7.35-7.45)
[2017-02-18 10:13] LABS: MODALITY VENTILATOR
[2017-02-18 10:15] LABS: ALLEN TEST YES; DRAW SITE R RADIAL
[2017-02-18] MEDS: AMPICILLIN 1 GM/NS 1 GM/50 ML IVPB IV SCH ×2 (18:25→23:54)
--- NOTE | 2017-02-18 19:49 | CONSULTATION ---
DATE OF CONSULTATION: 02/18/2017 REASON FOR CONSULTATION: Acute kidney injury. HISTORY OF PRESENT ILLNESS: Mr. Pate is an 86-year-old white male with hypertension, coronary disease, hyperlipidemia, hypothyroidism, and perhaps early dementia. The primary care physician had made a referral to our office because recent laboratory data were abnormal. He had experienced multiple repeated urinary tract infections according to his . These were treated repeatedly with Macrodantin with transient improvement in his symptoms. Again, abnormal laboratory data prompted more evaluation including an ultrasound, the results of which are not available to me. Ultimately, he came to the hospital because he had progressively altered sensorium, he was not able to get out of the car, he had marked weakness. They came to the emergency room where his initial evaluation found him hypotensive with an initial blood pressure in the 90s according to the H and P. Initial recorded blood pressure was 130/56. He had a temperature of 102.6. CT of the abdomen performed on admission found evidence of an impacted ureteral stone with subsequent hydronephrosis and perinephric edema on the left. He was admitted and treated with empiric antibiotics after cultures were obtained. He was taken to the operating room and had a stent placed by Dr. Pate on the morning of the . His vasopressor needs have declined and his temperature has improved. He has not had a fever in the last 24 hours. Blood cultures and urine cultures are positive with gram-negative rods. In this context, he has had volume resuscitation such that he is 9 L positive. Despite this, he has remained relatively oliguric with urine output ranging between 300 and 500 mL per 24 hours. PAST MEDICAL HISTORY: As above. CURRENT MEDICATIONS: 1. Acetaminophen. 2. Heparin. 3. Ipratropium. 4. Levalbuterol. 5. Norepinephrine. 6. Meropenem. 7. Ondansetron. 8. Propofol. 9. Tamsulosin. 10.Sodium bicarbonate. ALLERGIES: Sulfa. SOCIAL HISTORY: . Lives with his . FAMILY HISTORY: Otherwise noncontributory. REVIEW OF SYSTEMS: Otherwise noncontributory. PHYSICAL EXAMINATION: Vital signs: Blood pressure 148/63. Heart rate 75. Respirations 22. Afebrile. General: He is in no acute distress. He is awake, alert. Ventilator is in CPAP mode and he is breathing without difficulty. He is having episodes of coughing. Skin: Warm and dry. HEENT: Conjunctivae are pink. Pupils are equal. Oropharynx is dry. Neck veins are not visible. Heart: Regular without gallops or murmurs. Lungs: Have equal breath sounds, coarse, but no crackles, a few rhonchi, tube noise. Abdomen: Soft and nontender. Bowel sounds are present. No organomegaly, masses, bruits. Extremities: Have 2+ edema. No clubbing or cyanosis. Neurologic: Exam nonfocal. IMPRESSION: Acute kidney injury. Baseline renal function is not known to me. The last creatinine in our system at the hospital is 1.5 from 2003. There is no mention of renal atrophy on his CT. We will presume that all the changes are related to acute kidney injury. He has been treated appropriately. He has no acute indications for hemodialysis though he may develop these within the next 24 hours. I counseled his regarding the severity of his illness. Overall good prognosis for renal recovery given acceptable baseline renal function. We will continue daily reassessment regarding his need for dialysis. His medications have been reviewed and no changes are required. cc: Stefano Mejia MD
[2017-02-19] MEDS ORDERED: CARDIZEM IV ONE (01:14)
[2017-02-19] MEDS: CARDIZEM 100 MG/NS 100 MG/100 ML IVPB IV SCH ×2 (01:30→04:59)
[2017-02-19] MEDS ORDERED: LANOXIN IV ONE (03:06)
[2017-02-19] MEDS: ATROVENT NEB INH SCH ×6 (03:07→23:40)
[2017-02-19] MEDS: XOPENEX NEB INH SCH ×6 (03:08→23:40)
[2017-02-19] MEDS ORDERED: LANOXIN ONE (03:18)
[2017-02-19 04:17] LABS: ALLEN TEST YES; BE -5.4 mmoll (-3.0-3.0); BLOOD TYPE ARTERIAL; DRAW SITE R RADIAL; METHB 0.3 % (0.0-1.5); O2(CT) 22.1 mL/dL (15.0-23.0); PCO2(98.6) 35 mmHg (35-45); PO2(98.6) 80 mmHg (60-100); SAMPLE BLOOD; SAO2 95.6 % (95.0-100.0); THB 16.5 g/dL (11.5-17.4); pH(98.6) 7.35 (7.35-7.45)
[2017-02-19 04:18] LABS: MODALITY COOL AEROSOL
[2017-02-19 05:09] LABS: HEMATOCRIT 36.2 % (42.0-52.0); HEMOGLOBIN 12.2 g/dL (14.0-18.0); MCH 34.5 PG (27-31); MCHC 33.7 g/dL (33-37); MCV 102.3 FL (81-99); PLT 52 X1000 (130-400); RBC 3.54 XMIL (4.7-6.1)
[2017-02-19 05:10] LABS: ALBUMIN 2.4 g/dL (3.5-5.0); POTASSIUM 4.2 mmol/L (3.5-5.1); TOTAL BILIRUBIN 0.64 mg/dL (0.20-1.00); TOTAL PROTEIN 4.9 g/dL (6.3-8.3)
[2017-02-19] MEDS: AMPICILLIN 1 GM/NS 1 GM/50 ML IVPB IV SCH ×3 (05:20→17:39)
--- NOTE | 2017-02-19 06:57 | EKG Report ---
Test Performed on : 02/19/2017 00:56:59 AM Test Reason : EKEVATED HR Blood Pressure : / mmHG Vent. Rate : 150 BPM Atrial Rate : 234 BPM P-R Int : 000 ms QRS Dur : 094 ms QT Int : 306 ms P-R-T Axes : 000 043 181 degrees QTc Int : 483 ms Atrial flutter. with variable AV block. ST \T\ T wave abnormality, consider inferolateral ischemia Abnormal ECG No previous ECGs available Confirmed by Demian Johnston MD ([id number]) on 02/20/2017 3:17:56 PM
--- NOTE | 2017-02-19 07:47 | Diag Imaging Result Doc PS360 ---
CHEST-PORTABLE - 02/19/2017 INDICATION: respiratory failure TECHNIQUE: COMPARISON: 02/18/2017 FINDINGS: The patient has been extubated. Lung volumes remain very low. Stable cardiomegaly and pulmonary vascular congestion. Stable mild linear atelectasis in the left upper lobe. IMPRESSION: Patient extubated, otherwise no change from prior. Electronically signed by Tesfaye Quevedo 02/19/2017 7:44 AM
--- NOTE | 2017-02-19 08:02 | PROGRESS NOTE ---
DATE: 02/19/2017 SUBJECTIVE: The patient is still intubated. The patient is sleepy, but responds to verbal stimuli. Overnight, he developed new-onset atrial fibrillation with RVR. No chest pain noted. Heart rate was reaching 160s. Cardizem was started, and digoxin also was given , and now heart rate is better controlled. OBJECTIVE: Vital Signs: Temperature 98.8 degrees, heart rate 153, respiratory rate 24, blood pressure 137/71, O2 saturation 97% on Ventimask. General: This is an 86-year- old male, lying in bed in no acute distress. HEENT: Head is normocephalic, atraumatic. Anicteric sclerae. Pale conjunctivae. Mucous membranes dry. Neck: Supple. No JVD noted. No carotid bruits. No lymphadenopathy. No thyromegaly. Cardiovascular: S1, S2 heard. Irregularly irregular rhythm. No murmurs, gallops, or rubs. Respiratory: Globally decreased breath sounds, but there is no wheezing or crackles noted. The patient is not using any accessory muscles or having work of breathing. GI: The abdomen is soft, nontender to palpation, a little bit distended. No organomegaly. : Jose catheter in place. Extremities: No clubbing or cyanosis. Mild edema 1+ in both lower extremities, with signs of chronic venous insufficiency. Neurological: The patient is sleepy, but easily arousable to verbal stimuli. The patient moves 4 extremities. LABORATORY DATA: White cell count 22.75, hemoglobin 12.2, hematocrit 36.2, platelets 52,000. ABG shows pH 7.35 with pCO2 of 35, PO2 of 83. BMP shows creatinine 3.4, BUN 79, calcium 8.0. The Escherichia shows in blood culture, and urine culture is Escherichia coli pansensitive. ASSESSMENT AND PLAN: 1. Acute respiratory failure. The patient has been successfully extubated yesterday, and today he is on Ventimask. ABG shows good gas exchange. Dr. Brumfield from Pulmonary is following this patient. Help appreciated. 2. Septic shock secondary to urinary tract infection. The blood pressure now is better. Blood pressure for this patient has been ranging from 140s to 170. The vasopressor has been stopped. At this point also, we are going to continue with the same antibiotic. In this case, it is on meropenem. Yesterday, he was on normal saline at 125 mL/h, but we are going to reduce to 75 mL/h. 3. Pyelonephritis secondary to Escherichia coli. The patient is on meropenem. Today, urine and blood culture showed Escherichia coli, pansensitive. Dr. Tolliver from Infectious Disease is following this patient. Will leave to him the management of antibiotics. 4. Acute kidney injury. Renal function is getting better compared with yesterday. Nephrology has been consulted. They are following this patient on a daily basis. They said no indications for dialysis at this time, and they will continue to follow. Help appreciated. 5. Baseline dementia, stable. The patient is doing fine. 6. Benign prostatic hypertrophy. The patient now has been extubated, so we are going to restart Flomax, which is home medication. 7. Ureterolithiasis with left hydronephrosis, status post double-J stent placement. Urology on board. They describe in the procedure that he found pus coming out from the place that he inserted the stent. Dr. Pate' help appreciated. Will follow his recommendations. 8. New-onset atrial fibrillation with rapid ventricular response that happened overnight. Apparently, in the history and physical, they documented coronary artery disease, possible congestive heart failure, and apparently no history of atrial fibrillation. That could be related to the use of vasopressors. In any case, Cardizem has been started. Also, digoxin has been started as well, but considering his renal insufficiency, we prefer to continue with Cardizem drip, and will use beta-blockers if needed. Cardiology has been consulted. An echocardiogram has been ordered. Will continue with the same management. cc: Pako Buckley MD MTDD
--- NOTE | 2017-02-19 08:08 | PROGRESS NOTE ---
DATE: 02/19/2017 SUBJECTIVE: He has been extubated. He is awake and alert. He does nod and answer simple questions. No shortness of breath, nausea, or vomiting. He had an episode of atrial fibrillation with rapid response overnight, currently heart rate is controlled and regular. OBJECTIVE: Vital Signs: Blood pressure 137/71, heart rate 152, respirations 24, afebrile. These are from 3:40 a.m. Intake 1.4 L. Output 1.5 L. PHYSICAL EXAMINATION: No acute distress. Skin is warm and dry. Conjunctivae are pink. Neck veins are distended. Trachea is midline. Heart is regular without gallops. Lungs have equal breath sounds. No crackles or wheezes. Abdomen soft, nontender. Bowel sounds present. Extremities have 2+ edema. No clubbing or cyanosis. LABORATORY DATA: Sodium 143, potassium 4.2, chloride 106, bicarbonate 19. BUN 79, creatinine 3.4, hemoglobin 12.2. IMPRESSION: 1. Acute kidney injury, improved urine output. Creatinine was slightly lower today. Certainly, no indications for hemodialysis today. We will continue to observe without intervention. 2. Electrolytes acceptable. 3. Acid base. He does have a moderate metabolic acidosis that is primarily elevated anion gap acidosis likely related to his kidney disease. cc: Stefano Mejia MD
--- NOTE | 2017-02-19 09:44 | CONSULTATION ---
DATE OF CONSULTATION: 02/19/2017 INDICATION FOR CONSULTATION: New-onset atrial fibrillation. HISTORY OF PRESENT ILLNESS: Mr. Pate presented on 02/16/2017 with complaints of confusion, weakness, and fever. Over that time period, he has spent some time on the ventilator secondary to sepsis, likely of urinary tract origin. He has been found to have positive urine and blood cultures for Escherichia coli. Since that time, he has been extubated. Apparently overnight last night, he went into rapid atrial fibrillation. He was initially started on Cardizem, and got 1 dose of digoxin as well. He converted over the course of the evening, and presently is in sinus rhythm at a rate of 70 beats per minute on a Cardizem drip at 5 mg an hour. He has no complaints presently. He does continue to be somewhat confused as questions have to be asked multiple times in order to get a very slow answer. He is not having any pain complaints presently. He is not aware of any heart racing episodes last night. I normally follow him in clinic, and last saw him in February of last year. He has no history of atrial fibrillation. PAST MEDICAL HISTORY: From my chart review shows: 1. Osteoarthritis. 2. History of chest discomfort. 3. Hypertension. 4. Hyperlipidemia. 5. Sleep apnea. SOCIAL HISTORY: He does not smoke, drink, or use illicit drugs. He usually uses a cane or walker. FAMILY HISTORY: Unobtainable secondary to the patient being confused. REVIEW OF SYSTEMS: Unobtainable secondary to the patient presently being confused. PHYSICAL EXAMINATION: Vital Signs: His most recent temperature is , heart rate is in the 70s, blood pressure 151/87. He is not currently on pressors. He was febrile earlier in the hospitalization at 102.6. General: He is in no acute distress. He is warm and well perfused in his distal extremities. He is again, somewhat confused, able answer questions only after being asked multiple times, and then he gets a very slow response. HEENT: Oropharynx is moist. Poor dentition. Eye examination shows pink conjunctivae, white sclerae. Neck: No obvious thyromegaly or thyroid tenderness. Cardiovascular: He sounds to be in a regular rate and rhythm. He has no obvious murmurs. He has no S3. He has no lower extremity edema. He has trace to 1+ bilateral lower extremity edema. Chest: Some mild end-expiratory wheezes diffusely, but no increased work of breathing. Abdomen: Soft, nontender, nondistended. He has no obvious organomegaly. Skin: Warm and dry throughout without any rashes. Neurological: He is moving all extremities well. Cranial nerves II through XII are intact without any sensation deficits. He is not cooperative with the examination. Psychiatric: Again, he is giving very limited, halting responses, and some question about whether he really understands. IMAGING AND LABORATORY DATA: His most recent chest x-ray was done on 02/18/2017 showing really stable cardiomegaly, as well as pulmonary vascular congestion, mild linear atelectasis in the left upper lobe. His EKG checked on 02/19/2017 at around 1 a.m. shows what appears to be atrial fibrillation, rate of 150 beats per minute. His laboratory data shows a white count of 22.7, hematocrit 36, platelet count 52,000. His ABG shows a pH of 7.35. His lactate level was 2, which is steadily declined. Sodium is 143, potassium 4.2, BUN 79, creatinine 3.4 (yesterday was 71 and 3.8). His albumin is 2.4. TSH checked on 02/17/2017 was 1.48. Echo is currently pending. ASSESSMENT: 1. New-onset atrial fibrillation. 2. Sepsis of presumed urinary tract infection or urinary source. 3. Acute kidney injury. PLAN: The patient seems to be maintaining sinus rhythm presently. When he is able to take a stable p.o. intake, I would likely switch him to oral Cardizem. Otherwise, he seems to be improving. We will plan on checking an echo, which is currently pending. No further recommendations presently. cc: Bradley Garcia MD
[2017-02-19] MEDS: NS 1,000 ML IV SCH (09:46)
[2017-02-19] MEDS: LOPRESSOR IV SCH ×3 (09:46→19:33)
[2017-02-19] MEDS: HEPARIN SUBQ SCH ×2 (09:47→21:40)
[2017-02-19] MEDS: FLOMAX PO SCH ×2 (09:48→09:53)
--- NOTE | 2017-02-19 11:16 | OPERATIVE NOTE ---
PROCEDURE DATE: 02/19/2017 PREOPERATIVE DIAGNOSES: 1. Urosepsis 2. Poor peripheral access. POSTOPERATIVE DIAGNOSES: 1. Urosepsis 2. Poor peripheral access. PROCEDURES PERFORMED: Right femoral vein triple-lumen catheter placement. ESTIMATED BLOOD LOSS: Less than 10 mL. SPECIMENS: None. ANESTHESIA: Local. INDICATION: An 86-year-old male, admitted to the ICU with urinary tract infection. Sepsis and acute renal failure with poor peripheral access and central line placement was indicated. OPERATIVE NOTE: Risks, benefits, alternatives were discussed with the patient and his family. They consented to the procedure. The surgical site was confirmed. His groin was prepped with chlorhexidine solution, draped in usual fashion. After a time-out, we were able easily palpate the femoral artery. It accessed the femoral vein medial to this on the 1st pass. Dark nonpulsatile venous blood was noted on return. The wire threaded easily. We removed the needle and made a skin brianna with the 11 blade scalpel dilated the tract, placed a pre-flushed triple- lumen 7-Nepali catheter. We removed the wire. All ports withdrew blood and flushed easily. We secured the line and applied a sterile dressing. Tolerated procedure well with no identified complications. cc: Ruddy Perdomo MD
--- NOTE | 2017-02-19 18:18 | ECHO REPORT ---
ORDER DATE: 02/19/2017 MEASUREMENTS: Left ventricular end-diastolic diameter 4.8. End-systolic diameter 3.1. Septal thickness 1.0, posterior wall thickness 0.9. Aortic root 3.5, left atrium 3.9. SUMMARY: 1. Technically difficult study due to limited acoustic window quality. Intravenous echo contrast agent Definity utilized to enhance endocardial definition. 2. Mild aortic valve sclerosis demonstrated with adequate aortic valve opening evident. Peak gradient across the aortic valve is less than 10 mmHg. Mitral, tricuspid, and pulmonic valves are without evidence of structural abnormality with mild tricuspid regurgitation and trace pulmonic insufficiency. Estimated systolic PA pressure by Doppler is 40 mmHg. The aortic root is normal size. 3. Normal left ventricular dimensions demonstrated. Estimated left ventricular ejection fraction appears to be at least 65%. No regional wall motion bodies are evident. Doppler suggests normal left ventricular diastolic function. Left atrium is upper normal in size. Right atrium and right ventricle are normal in size with normal right ventricular systolic function. Intravenous agitated saline contrast study (bubble study) was nondiagnostic due to technical limitations. 4. No pericardial effusion. 5. Appearance of inferior vena cava suggests normal central venous pressure. CONCLUSIONS: 1. Technically difficult study. 2. Mild aortic valve sclerosis without stenosis. 3. Mild tricuspid regurgitation with mild pulmonary hypertension by Doppler. 4. Estimated left ejection fraction at least 65%. cc: MD Eron Patino CRNP
[2017-02-19] MEDS ORDERED: MAXIPIME 1 GM in NS 50 ML IV SCH (18:30)
--- NOTE | 2017-02-19 18:36 | PROGRESS NOTE ---
DATE: 02/19/2017 PRESENT ILLNESS: The patient has an Enterobacter bacteremia and urinary tract infection which was caused by a blockage in the left ureter from a renal calculus. The patient has been on ampicillin to which the organism tested susceptible, however, today the patient's white blood cell count increased to 22,750. The exact reason for this is uncertain to me. MEDICATIONS: Currently, the patient is taking ampicillin intravenously. PHYSICAL EXAMINATION: Vital Signs: Temperature is 98.5, pulse 64, respirations 28, blood pressure 162/68. General: This is an obese, but otherwise fairly healthy-appearing, elderly male who is in no acute distress at this time. Lungs: Clear to auscultation. Abdomen: And flank, soft and nontender. Lungs: Clear to auscultation. Cardiovascular: Regular heart rate. Neurology: Patient can move his extremities. There is no tremor. LABS AND RADIOGRAPHIC STUDIES: The patient's CBC shows a white count of 22,750, hemoglobin is 12.2, platelet count is 5200. Blood gases show a pH of 7.35, a pO2 of 80, a pCO2 of 35. Creatinine is 3.4. GFR is 17. Both blood and urine are growing Enterobacter. ASSESSMENT AND PLAN: Patient has bacteremia and a urinary tract infection with an increasing white count. I am stopping the ampicillin and placing the patient on cefepime. COMORBIDITIES: The patient is elderly and has kidney stones. cc: Chandler Tolliver MD
[2017-02-20] MEDS: LOPRESSOR IV SCH ×4 (01:35→21:52)
[2017-02-20] MEDS: NS 1,000 ML IV SCH ×2 (01:51→18:20)
[2017-02-20] MEDS: ATROVENT NEB INH SCH ×6 (03:35→23:00)
[2017-02-20] MEDS: XOPENEX NEB INH SCH ×6 (03:35→23:00)
[2017-02-20 04:48] LABS: ALLEN TEST YES; BLOOD TYPE ARTERIAL; DRAW SITE R RADIAL; METHB 0.6 % (0.0-1.5); O2(CT) 15.8 mL/dL (15.0-23.0); PCO2(98.6) 33 mmHg (35-45); PO2(98.6) 70 mmHg (60-100); SAMPLE BLOOD; SAO2 94.7 % (95.0-100.0); pH(98.6) 7.41 (7.35-7.45)
[2017-02-20 04:54] LABS: MODALITY ROOM AIR
[2017-02-20] MEDS: MAXIPIME 1 GM/D5W 1 GM/50 ML IVPB IV SCH ×2 (05:44→17:37)
[2017-02-20 05:55] LABS: HEMOGLOBIN 11.6 g/dL (14.0-18.0); MCH 33.6 PG (27-31); MCHC 34.1 g/dL (33-37); MCV 98.6 FL (81-99); PLT 42 X1000 (130-400); RBC 3.45 XMIL (4.7-6.1)
[2017-02-20 06:11] LABS: ALBUMIN 2.6 g/dL (3.5-5.0); CALCIUM 7.8 mg/dL (8.8-10.2); POTASSIUM 4.2 mmol/L (3.5-5.1); TOTAL BILIRUBIN 0.98 mg/dL (0.20-1.00); TOTAL PROTEIN 4.9 g/dL (6.3-8.3)
[2017-02-20] MEDS: FLOMAX PO SCH (08:00)
[2017-02-20] MEDS: HEPARIN SUBQ SCH ×2 (08:00→21:53)
--- NOTE | 2017-02-20 08:08 | Diag Imaging Result Doc PS360 ---
EXAM: CHEST-PORTABLE INDICATION: respiratory failure TECHNIQUE: One view COMPARISON: 02/19/2017 FINDINGS: Lung volumes remain low. Pulmonary venous congestion is unchanged. No new consolidation is appreciated. Cardiac silhouette is stable. IMPRESSION: Stable chest. Electronically signed by Joon Rosen 02/20/2017 8:06 AM
--- NOTE | 2017-02-20 08:42 | PROGRESS NOTE ---
DATE: 02/20/2017 SUBJECTIVE: Patient is more awake today. Does not have any complaints this morning. OBJECTIVE: Vital Signs: Temperature 99.2 degrees, heart rate 57, respiratory 19, blood pressure 164/74, O2 saturation 95% 2 L nasal cannula. General examination: This is an 86-year-old, male, lying in bed in no acute distress. HEENT: Head is normocephalic, atraumatic. Anicteric sclerae and pale conjunctivae. Neck: Supple. No JVD noted. No carotid bruits. No lymphadenopathy. Cardiovascular exam: S1, S2 heard. Regular rate and rhythm. No murmurs, gallops or rubs. Respiratory exam: Decreased breath sounds. There is no wheezing or crackles noted. Patient is not using any accessory muscles or having work of breathing. Abdomen: Soft, nontender to palpation. Nondistended. : Jose catheter in place with clear urine. Extremities: No clubbing or cyanosis, but mild edema 1+ in both lower extremities with signs of chronic venous insufficiency. Neurological exam: Patient is more awake and alert. The patient moves 4 extremities. LABORATORY DATA: White cell count 17.87, hemoglobin 11.6, hematocrit 34.0, platelets 42. ABG shows pH 7.41 with pCO2 33. The sodium is 146, BUN 79 and creatinine 2.8. ASSESSMENT AND PLAN: 1. Acute respiratory failure: Patient is now on 2 L of oxygen by nasal cannula. He was using his CPAP machine for sleep apnea. ABG shows gas exchange, so we are going to stop checking arterial blood gas daily. Pulmonary following this patient. 2. Septic shock secondary to urinary tract infection: Actually the patient's blood pressure is higher. He is on gentle intravenous fluid hydration with 75 mL of normal saline. At this point, we are going to continue with the same management. 3. Pyelonephritis secondary to Escherichia coli: The patient was on ampicillin after we find out that this equalized pansensitive, but the white cell count started to go up so Dr. Tolliver from infectious disease has changed the medication from ampicillin to cefepime. Will continue following his recommendations. 4. Acute kidney injury: The renal function is getting better from 3.4 creatinine yesterday to 2.8 today. He is also making good urine. Dr. Mejia from nephrology has been consulted. He is following the patient on a daily basis. 5. Baseline dementia: Stable. 6. Benign prostatic hypertrophy: The patient will start Flomax today. 7. Ureterolithiasis with left hydronephrosis status post double-J stent placement: Stable. Urology on board. 8. New onset atrial fibrillation with rapid ventricular response. Cardiology has been consulted and he was started on Cardizem drip. So far, the heart rate started to drop, so Cardizem has been stopped. Actually the heart rate is in the range of low 50s and 60s, and also the heart rhythm is back to normal. Cardiology initially recommends to place this patient on Cardizem, but I think considering his low heart rate we prefer to hold this medication. DISPOSITION: The patient is stable now in sinus heart rhythm, the rhythm is controlled, so we are going to transfer this patient out of intensive care unit today. cc: Pako Buckley MD
--- NOTE | 2017-02-20 12:58 | PROGRESS NOTE ---
DATE: 02/20/2017 CHIEF COMPLAINT: Lethargy, confusion, tachycardia, irregular heartbeat. SUBJECTIVE: Mr. Pate appears to be doing better today. He is not in any distress. He is not in any pain. His rhythm has converted back to sinus. He is breathing with a Ventimask. OBJECTIVE: Blood pressure right now is 145/64, pulse 61, temperature 98.9, respirations 23. He is arousable. He follows some simple commands. Chest: Diminished breath sounds at bases with occasional rhonchi. HEENT is unremarkable. Heart sounds are regular and rhythmic. I do not hear any major gallop or murmur. Abdomen is obese, distended. Extremities show good pulses. No peripheral edema. Neurologic: He follows simple commands. DIAGNOSTIC DATA: White count is 17,870, hemoglobin 11.6. His BUN is 79, creatinine 2.8, sodium 146, potassium 4.2, chloride 110, carbon dioxide 21. IMPRESSION: 1. The patient presented with septicemia, Escherichia coli, source urinary obstruction, status post cystoscopic exam and placement of a left double-J stent per Dr. Pate. 2. Paroxysmal atrial fibrillation which has converted back to sinus rhythm. 3. The patient has history of hypertension, sleep apnea, hyperlipidemia and has had prior diagnosis of chest pain. RECOMMENDATIONS: At this time, the patient has converted to sinus. I would continue current approach, diltiazem as ordered, digoxin as ordered and low doses of Lopressor. We will follow him along. Thank you for the opportunity to participate in his evaluation. Best regards. cc: Carl Mast MD
--- NOTE | 2017-02-20 13:42 | PROGRESS NOTE ---
DATE: 02/20/2017 SUBJECTIVE: Mr. Pate is progressively improving. He is more alert today and able to answer and ask simple questions. He has no chest pain, shortness of breath, nausea or vomiting. OBJECTIVE: Blood pressure 145/64, heart rate 61, respirations 23, afebrile. Intake 1.9 L. Output 1.6 L. PHYSICAL EXAMINATION: General: No acute distress. Skin is warm and dry. Conjunctivae are pink. Neck veins are 6-8 cm. Heart is regular with S4. Lungs have equal breath sounds. No crackles or wheezes. Abdomen is soft, nontender, obese. Bowel sounds present. Extremities: Have 1+ edema. No clubbing or cyanosis. LABORATORY DATA: Sodium 146, potassium 4.2, chloride 110, bicarbonate 21. BUN 79, creatinine 2.8, hemoglobin 11.6. IMPRESSION: 1. Acute kidney injury secondary to sepsis and acute pyelonephritis secondary to obstructed left ureter. Progressive improvement in urine output and falling creatinine. 2. Electrolytes and acid-base are in target. No changes are required. cc: Stefano Mejia MD
[2017-02-20] MEDS ORDERED: LASIX PO SCH (16:34)
[2017-02-20] MEDS ORDERED: SYNTHROID PO SCH (16:34)
[2017-02-20] MEDS ORDERED: NS NEB INH SCH (17:00)
[2017-02-20] MEDS: XOPENEX NEB INH PRN (17:03)
[2017-02-20] MEDS: ZOLOFT PO SCH (17:28)
[2017-02-20] MEDS: RANEXA PO SCH ×2 (17:28→21:54)
[2017-02-20] MEDS: VESICARE PO SCH ×2 (17:36→21:54)
[2017-02-20] MEDS: AVODART PO SCH (17:36)
[2017-02-20] MEDS: ZOCOR PO SCH (21:54)
[2017-02-21] MEDS: NS 1,000 ML IV SCH ×2 (03:00→06:04)
[2017-02-21] MEDS: LOPRESSOR IV SCH ×4 (03:00→21:02)
[2017-02-21] MEDS: XOPENEX NEB INH SCH ×6 (03:30→23:21)
[2017-02-21] MEDS: ATROVENT NEB INH SCH ×6 (03:30→23:21)
[2017-02-21 05:26] LABS: HEMATOCRIT 34.7 % (42.0-52.0); HEMOGLOBIN 11.9 g/dL (14.0-18.0); MCH 33.1 PG (27-31); MCHC 34.3 g/dL (33-37); MCV 96.7 FL (81-99); MPV 13.6 FL (7.4-10.4); RBC 3.59 XMIL (4.7-6.1)
[2017-02-21 05:33] LABS: ALBUMIN 2.8 g/dL (3.5-5.0); CALCIUM 7.8 mg/dL (8.8-10.2); TOTAL BILIRUBIN 1.57 mg/dL (0.20-1.00)
[2017-02-21] MEDS: MAXIPIME 1 GM/D5W 1 GM/50 ML IVPB IV SCH ×2 (06:05→18:27)
[2017-02-21] MEDS: SYNTHROID PO SCH (06:05)
--- NOTE | 2017-02-21 07:45 | Diag Imaging Result Doc PS360 ---
EXAM: CHEST-PORTABLE INDICATION: respiratory failure TECHNIQUE: One view COMPARISON: 02/20/2017 FINDINGS: Inspiration is suboptimal similar to the previous study. Mild pulmonary venous congestion is approximately stable. No new consolidation is appreciated. Cardiac silhouette is stable. IMPRESSION: Stable chest Electronically signed by Joon Rosen 02/21/2017 7:43 AM
[2017-02-21] MEDS ORDERED: LASIX PO SCH (09:00)
[2017-02-21] MEDS: LASIX IV SCH ×2 (09:29→21:02)
[2017-02-21] MEDS: VESICARE PO SCH ×2 (09:29→21:02)
[2017-02-21] MEDS: ZOLOFT PO SCH (09:30)
[2017-02-21] MEDS: RANEXA PO SCH ×2 (09:30→21:02)
[2017-02-21] MEDS: FLOMAX PO SCH (09:30)
[2017-02-21] MEDS: HEPARIN SUBQ SCH ×2 (09:30→21:02)
[2017-02-21] MEDS: AVODART PO SCH (09:30)
[2017-02-21] MEDS: XOPENEX NEB INH PRN (10:10)
--- NOTE | 2017-02-21 10:31 | PROGRESS NOTE ---
DATE: 02/21/2017 SUBJECTIVE: Patient continues to be awake. Complains of mild shortness of breath. He has noticeable wheezing. No fever or chills reported. OBJECTIVE: Vital Signs: Temperature 97.6 degrees, heart rate 56, respiratory rate 15, blood pressure 114/66, O2 saturation 98% on 2 L nasal cannula. He was using overnight a CPAP machine. General Examination: This is an 86-year-old, male, lying in bed, in no acute distress. HEENT: Head is normocephalic and atraumatic. Anicteric sclerae and pale conjunctivae. Neck: Supple. No JVD noted. No carotid bruits. No lymphadenopathy. No thyromegaly. Cardiovascular Examination: S1 and S2 heard. No murmurs, gallops, or rubs. Regular rate and rhythm. Respiratory Examination: There is wheezing all over both pulmonary montesinos. Patient is not using any accessory muscles or having work of breathing. Abdomen: Soft, nontender to palpation. Nondistended. : With Jose catheter in place with clear urine. Extremities: No clubbing or cyanosis but mild edema in both lower extremities of 1+ and also signs of chronic venous insufficiency. Neurological Examination: Patient is more awake and alert. Oriented in place and person. Patient moves 4 extremities. Laboratory Data: White cell count 17.77, hemoglobin 11.9, hematocrit 34.7, platelets 48,000. BMP showed a sodium of 148, creatinine 2.3, and BUN 70. ASSESSMENT AND PLAN: 1. Acute respiratory failure. Currently, he is on 2 L nasal cannula. He is using a CPAP machine for his sleep apnea at night. At this point, we are going to continue with the same oxygen supplementation. Today, he showed on the physical examination, wheezing all over. The x-ray from today showed mild pulmonary venous congestion but no new consolidations appreciated so we decided to start Lasix that he uses at home at 40 mg daily but we are going to provide 40 mg intravenous every 12 hours. Also, patient is already on breathing treatments with albuterol, levalbuterol, and ipratropium every 4 hours scheduled and every 2 hours as needed for shortness of breath. 2. Septic shock secondary to urinary tract infection. Actually, the shock has completely resolved. Blood pressure is fine so we are going to stop intravenous fluids. We are going to continue with the same antibiotic management. 3. Pyelonephritis secondary to E. coli. The patient is currently on cefepime as per Dr. Tolliver from infectious disease. White cell count is still high at 17,000, same in comparing with yesterday. We will continue with the same management. He is not spiking any fever. 4. Acute kidney injury. Patient's renal function continues to improve. Yesterday, it was 2.8 and today is 2.3. Intakes and outputs showed that he made 1.6 L of urine. We will continue to monitor. Dr. Mejia from nephrology is also following this patient on a daily basis. 5. Baseline dementia, stable. 6. Benign prostatic hypertrophy. Patient has been started on Flomax. 7. Ureterolithiasis with left hydronephrosis, status post double-J stent placement, stable. 8. New onset atrial fibrillation with rapid ventricular response. Actually, the patient has converted to sinus rhythm. Cardiology is following this patient. Actually, this patient is on digoxin, Cardizem, and metoprolol. Heart rate has been between 50s and 80s. We will continue with the same management. 9. Physical deconditioning. Physical therapy is following this patient. We will continue with the same management. cc: Pako Buckley MD
[2017-02-21] MEDS: ZOCOR PO SCH (21:02)
[2017-02-21] MEDS: HYTRIN PO SCH ×2 (21:02)
[2017-02-22] MEDS: LOPRESSOR IV SCH ×2 (03:11→08:24)
[2017-02-22] MEDS: ATROVENT NEB INH SCH ×6 (03:42→23:45)
[2017-02-22] MEDS: XOPENEX NEB INH SCH ×6 (03:42→23:45)
[2017-02-22] MEDS: MAXIPIME 1 GM/D5W 1 GM/50 ML IVPB IV SCH ×3 (04:57→05:36)
[2017-02-22 05:56] LABS: HEMATOCRIT 35.7 % (42.0-52.0); MCH 33.3 PG (27-31); MCHC 33.6 g/dL (33-37); MCV 99.2 FL (81-99); MPV 14.3 FL (7.4-10.4); RBC 3.6 XMIL (4.7-6.1)
[2017-02-22] MEDS: SYNTHROID PO SCH (06:00)
[2017-02-22 06:14] LABS: ALBUMIN 2.7 g/dL (3.5-5.0); CALCIUM 8.1 mg/dL (8.8-10.2); POTASSIUM 3.8 mmol/L (3.5-5.1); TOTAL BILIRUBIN 2.21 mg/dL (0.20-1.00); TOTAL PROTEIN 5.4 g/dL (6.3-8.3)
--- NOTE | 2017-02-22 06:52 | PROGRESS NOTE ---
DATE: 02/22/2017 SUBJECTIVE: The patient has an E coli bacteremia and urinary tract infection. This was caused by a blockage in the left ureter, which has been treated by Dr. Pate by putting a stent in. MEDICATIONS: The patient currently is on cefepime. OBJECTIVE: Vital Signs: Temperature is 97.6 degrees, respirations 22, blood pressure is 146/64. General: This is an obese, but otherwise fairly healthy-appearing, elderly male. He is in no acute distress. Lungs: Clear to auscultation. Cardiovascular: Regular heart rate. Abdomen and flanks: Soft and nontender. In the right groin, there is a triple-lumen catheter in place. The site is not erythematous or draining. LAB AND RADIOGRAPHIC STUDIES: CBC shows a white count down to 15,630, hemoglobin 12, and platelet count 50,000. Creatinine is 2.3. GFR is 27. The ALT is 50. Chest x-ray shows pulmonary venous congestion. ASSESSMENT AND PLAN: The patient has Escherichia coli urinary tract infection and bacteremia. My plan is to switch the patient to cefepime to Levaquin today. Also, I am going to get 2 blood cultures, and I have ordered a CBC and BMP for tomorrow morning. If the patient does well on Levaquin, the white count continues to come down, and the repeat blood cultures are sterile then from infectious disease perspective I think the patient can be discharged tomorrow. I plan to treat the patient with Levaquin for a total of 14 days, with the first day of treatment being when the patient's blood culture is sterile. COMORBIDITIES: He is elderly and he has renal calculi which unfortunately blocked his ureter. cc: Chandler Tolliver MD [facility]
--- NOTE | 2017-02-22 07:26 | Diag Imaging Result Doc PS360 ---
EXAM: CHEST-PORTABLE HISTORY: respiratory failure TECHNIQUE: Portable AP COMPARISON: 02/21/2017 FINDINGS: Poor inspiratory effort. The heart is not enlarged. Minimal vascular distention. There is atelectasis in the lower right lung. No consolidation. No pleural effusions identified. IMPRESSION: No interval improvement. Electronically signed by Josue Bryan 02/22/2017 7:24 AM
[2017-02-22] MEDS: AVODART PO SCH (08:23)
[2017-02-22] MEDS: RANEXA PO SCH ×2 (08:23→20:39)
[2017-02-22] MEDS: VESICARE PO SCH ×2 (08:23→20:39)
[2017-02-22] MEDS: LASIX IV SCH ×2 (08:24→20:39)
[2017-02-22] MEDS: ZOLOFT PO SCH (08:24)
[2017-02-22] MEDS: LEVAQUIN PO SCH (08:24)
[2017-02-22] MEDS: HEPARIN SUBQ SCH ×2 (08:24→20:39)
[2017-02-22] MEDS: FLOMAX PO SCH (08:24)
--- NOTE | 2017-02-22 08:53 | PROGRESS NOTE ---
DATE: 02/22/2017 SUBJECTIVE: Patient is more alert and awake. No shortness of breath or chest pain today. Wheezing noted since yesterday is not present. No fevers or chills reported. OBJECTIVE: Vital Signs: Temperature 97.6 degrees, heart rate 58, respiratory rate 16, blood pressure 146/64, O2 saturation 95% on 2 L nasal cannula. General Examination: This is an 86-year- old, male, lying in bed, in no acute distress. HEENT: Head is normocephalic and atraumatic. Anicteric sclerae and pale conjunctivae. Neck: Supple. No JVD noted. No carotid bruits. No lymphadenopathy. No thyromegaly. Cardiovascular Examination: S1 and S2 heard. No murmurs, gallops, or rubs. Regular rate and rhythm. Respiratory Examination: There is minimal wheezing noted in both bases. Patient is not using any accessory muscles or having work of breathing. Abdomen: Soft, nontender to palpation, nondistended. Genitourinary : With Jose catheter in place with clear urine. Extremities No clubbing or cyanosis but mild edema of 1+ in both lower extremities with signs of chronic venous insufficiency. Neurological Examination: Patient is more awake and alert. Oriented in place and person. Moves 4 extremities. Laboratory Data: White cell count is 15.63, hemoglobin 12, hematocrit 35.7, platelets 50,000. BMP shows creatinine 2 with BUN of 63. Rest of the exam is okay. ASSESSMENT AND PLAN: 1. Acute respiratory failure. Currently, he is using 2 L of oxygen by nasal cannula. Yesterday, the physical examination disclosed wheezing all over both pulmonary montesinos. We have started him on Lasix 40 mg twice a day. Also, we continued with levalbuterol and ipratropium. Today, he is feeling much better. Physical examination definitely showed less wheezing. At this point, we are going to continue with the same management. Pulmonary is following this patient. 2. Septic shock secondary to a urinary tract infection. Actually, the shock is completely resolved. We have the stopped intravenous fluids and blood pressure is fine. We are going to continue with the same management. 3. Pyelonephritis secondary to E. coli. Dr. Tolliver from infectious disease is following this patient. He has changed cefepime for Levaquin. If white cell count continues to go down, he plans to continue with this medication for a couple of weeks. He ordered blood cultures. If those are negative, we will count the first day of the treatment like the first day that the blood culture was negative. He is not spiking any fever. 4. Acute kidney injury. Renal function continues to improve. Yesterday, it was 2.3 and today it is 2. Ins and outs indicate that the patient is making good urine. Dr. Mejia from nephrology has been consulted. We will continue with the same management. 5. Baseline dementia. Stable. 6. Benign prostatic hypertrophy. Patient has been restarted on Flomax. 7. Ureterolithiasis with left hydronephrosis, status post double-J stent placement. Stable. 8. New onset atrial fibrillation with rapid ventricular response. Currently, this patient is on digoxin, Cardizem, and Toprol. Heart rate has been in the range of 50s and 90s. We will continue with the same management. 9. Physical deconditioning. Physical therapy working with this patient. 10. Disposition. I can anticipate that this patient will be most likely medically stable in the middle of the week. He will definitely need to go to a rehab facility. Physical therapy is working with this patient now. He is stable now so he is going to be moved out from the [facility] today. cc: Pako Buckley MD [facility]
--- NOTE | 2017-02-22 11:34 | PROGRESS NOTE ---
DATE: 02/22/2017 SUBJECTIVE: Mr. Pate is resting quietly in bed. Head of the bed is elevated. He denies any pain. No increased work of breathing. No nausea or vomiting. OBJECTIVE: His most recent vital signs: Temperature 97.7 degrees, blood pressure 141/64, heart rate 63 respirations are 18. He is currently on 3 L nasal cannula. Last recorded saturation is 100%. He has had 1610 in. He has had 4600 out per Jose catheter. He is in a -3.5 L fluid balance over the last 3 days. LABS: Sodium 144, potassium 3.8, chloride is 108, CO2 24, BUN 63, creatinine 2 , glucose 129. Anion gap 12 calcium 8.1, albumin 2.7. White count 15.63, hemoglobin 12, hematocrit 35.7, platelet count 50,000. Blood cultures are currently pending. PHYSICAL EXAMINATION: General: This is an 86-year-old elderly white male. He appears in no acute distress. Skin: Warm and dry. HEENT: Normocephalic, atraumatic. Conjunctiva is pale. He has RADHA. Mucous membranes are moist. Neck: Supple. Trachea midline. He has trace JVD. Cardiovascular: Regular rate and rhythm. He has a soft gallop. No murmur appreciated. Lungs: Clear to auscultation anteriorly. Equal excursion on O2. Abdomen: Large, round, soft, nontender, positive bowel sounds. Extremities: He has 3+ lower extremity edema. Chronic venous stasis is present. Integumentary: No rashes or lesions evident, inspected anterior. Neurological: Alert and oriented times person and place. ASSESSMENT AND PLAN: 1. Acute kidney injury secondary to sepsis and acute pyelonephritis due to obstructed left ureter. Patient continues with adequate urine out. He is in a negative fluid balance. It appears his IV fluids have been stopped this a.m. We feel that this is appropriate. 2. Electrolytes. These are stable. 3. Acid-base balance. This is stable. 4. Anemia. This is in target. 5. Sepsis. Patient remains on renal dosed antibiotics. 6. Altered mental status. This has improved I would to thank you for allowing us to follow with this patient. Dictated by JHONATAN Mejia for Stefano Mejia MD Patient seen, data reviewed, discussed with Bernardo Moralez on 02/22/17. I agree with the above assessment and plan of care. cc: JHONATAN Mejia MD [facility]
--- NOTE | 2017-02-22 13:22 | PROGRESS NOTE ---
DATE: 02/22/2017 SUBJECTIVE: Mr. Pate is much clearer today. He is less confused. He does not have any complaints. PHYSICAL EXAMINATION: Vital signs: Afebrile. Heart rate is in the 50s to 60s. Blood pressure 141/64. Generally: He is in no acute distress. Cardiovascular: Regular rate and rhythm with telemetry that currently shows sinus rhythm. He has no increased work of breathing. Abdomen: Soft, nontender, nondistended. PERTINENT DATA: His white count is 15.6, hematocrit 35, platelet count 50,000. Sodium is 144, potassium 3.8, BUN 63, creatinine is 2 which is down. ASSESSMENT: 1. Sepsis with a urinary source. 2. Atrial fibrillation. PLAN: He is in sinus rhythm today. We will continue with current medications with the exception of stopping his diltiazem infusion which is not currently running, as well as discontinuing his IV Lopressor. I will place him on metoprolol 25 b.i.d. I do not think he is an appropriate anticoagulation candidate given his renal insufficiency and will likely have discussions regarding initiating this as an outpatient once we can assess the patient's mobility status. cc: Bradley Garcia MD
[2017-02-22] MEDS: HYTRIN PO SCH (20:39)
[2017-02-22] MEDS: LOPRESSOR PO SCH (20:39)
[2017-02-22] MEDS: ZOCOR PO SCH (20:39)
[2017-02-23] MEDS: XOPENEX NEB INH SCH ×6 (03:35→22:30)
[2017-02-23] MEDS: ATROVENT NEB INH SCH ×6 (03:35→22:30)
[2017-02-23] MEDS: SYNTHROID PO SCH (06:04)
--- NOTE | 2017-02-23 06:08 | Diag Imaging Result Doc PS360 ---
EXAM: CHEST-PORTABLE HISTORY: respiratory failure TECHNIQUE: Portable AP COMPARISON: 02/22/2017 FINDINGS: Poor inspiratory effort. Heart is not enlarged. The vessels are not distended although there is minimal central vascular prominence. There are no infiltrates. No pleural effusions identified. IMPRESSION: Stable chest Electronically signed by Josue Bryan 02/23/2017 6:06 AM
[2017-02-23 06:34] LABS: HEMATOCRIT 35.4 % (42.0-52.0); MCH 33.9 PG (27-31); MCHC 33.9 g/dL (33-37); MPV 14.2 FL (7.4-10.4); RBC 3.54 XMIL (4.7-6.1)
[2017-02-23 06:46] LABS: ALBUMIN 2.6 g/dL (3.5-5.0); CALCIUM 7.8 mg/dL (8.8-10.2); POTASSIUM 3.5 mmol/L (3.5-5.1); TOTAL BILIRUBIN 1.45 mg/dL (0.20-1.00); TOTAL PROTEIN 5.5 g/dL (6.3-8.3)
[2017-02-23] MEDS: FLOMAX PO SCH (09:15)
[2017-02-23] MEDS: LOPRESSOR PO SCH ×2 (09:16→22:15)
[2017-02-23] MEDS: RANEXA PO SCH ×2 (09:16→22:15)
[2017-02-23] MEDS: LASIX IV SCH (09:16)
[2017-02-23] MEDS: ZOLOFT PO SCH (09:16)
[2017-02-23] MEDS: HEPARIN SUBQ SCH ×2 (09:16→22:15)
[2017-02-23] MEDS: VESICARE PO SCH ×2 (09:16→22:15)
[2017-02-23] MEDS: LEVAQUIN PO SCH (09:16)
[2017-02-23] MEDS: AVODART PO SCH (09:16)
--- NOTE | 2017-02-23 12:00 | PROGRESS NOTE ---
DATE: 02/23/2017 SUBJECTIVE: Patient is more alert and awake. Per physical therapy, he was able to walk with assistance throughout the hallways. No shortness of breath reported. OBJECTIVE: Vital Signs: Temperature 98 degrees, heart rate 55, respiratory rate 19, blood pressure 134/59, O2 saturation 98% on 2 L nasal cannula. General Examination: This is an 86-year- old, male, lying in bed, in no acute distress. HEENT: Head is normocephalic and atraumatic. Anicteric sclerae and pale conjunctivae. Neck: Supple. No JVD noted. No carotid bruits. Cardiovascular Examination: S1 and S2 heard. No murmurs, gallops, or rubs. Regular rate and rhythm. Respiratory Examination: There is no wheezing noted on the physical examination today. The patient is not using any accessory muscles or having work of breathing. Abdomen: Soft, nontender to palpation. Bowel sounds present. No organomegaly. Extremities: No clubbing, cyanosis, or edema. Peripheral pulses present in both legs. Genitourinary: With Jose catheter in place with clear urine. Neurological Examination: Patient is more alert and awake. Moves 4 extremities. Able to walk with assistance. Laboratory Data: White cell count 13.9, hemoglobin 10, hematocrit 35.4, platelets 69,000. ASSESSMENT AND PLAN: 1. Acute respiratory failure. Patient is doing fine now, requiring 2 L of oxygen by nasal cannula. Patient has been on Lasix for a possible volume overload. We have checked an x-ray and actually there are no signs of volume overload. At this time, we are going to stop the Lasix. We will continue with levalbuterol and ipratropium. No more wheezing on physical examination. We will continue with the same management. 2. Septic shock secondary to urinary tract infection. Shock is completely resolved. Patient is not on any intravenous fluids. We will continue with intravenous antibiotics. 3. Pyelonephritis secondary to Escherichia coli. The patient has been by Dr. Tolliver from infectious disease. Currently, he is on Levaquin. He is planning to do antibiotics for a couple of weeks. We have ordered another set of the blood cultures. Yesterday, they were negative. We will continue with the same management. 4. Acute kidney injury. The renal function was 2 as of yesterday. I think that could be his baseline. Ins and outs show good diuresis. Dr. Mejia from nephrology is following this patient. We will follow recommendations. 5. Baseline dementia, stable. 6. Benign prostatic hypertrophy. The patient is currently on Flomax. 7. Ureterolithiasis with left hydronephrosis, status post double-J stent placement. Patient is stable. As per urology recommendation, he needs to be seen in the office in 4 weeks from the time that this stent was placed. That can be removed at that time. 8. New onset atrial fibrillation with rapid ventricular response. At this time, he is not on any drip. Recommendation from cardiology is to continue with metoprolol 25 mg by mouth twice a day. Anticoagulation, there is no clear recommendation. We will see if this patient . Apparently, he is able to walk so we will see what cardiology has to say. 9. Physical deconditioning. Physical therapy working with this patient. 10. Disposition. Patient is doing fine so I would say that probably in the middle of the week, the patient will be better and can be discharged to a rehab facility on Wednesday. cc: Pako Buckley MD
--- NOTE | 2017-02-23 14:19 | PROGRESS NOTE ---
DATE: 02/23/2017 TIME SEEN: 0835. SUBJECTIVE: Mr. Pate is resting quietly in bed. Head of the bed is elevated. He is eating his breakfast. He denies any pain. No increased work of breathing. No nausea or vomiting. OBJECTIVE: Vital signs: His most recent vital signs, temperature 97.7 degrees , blood pressure 120/57, heart rate 57, respirations 14. He is on 2 L nasal cannula. Last recorded saturation 98%. He has had 0 in. He has had 575 out per void. Labs: Sodium 144, potassium 3.5, chloride 104, CO2 29, BUN 59, creatinine 2, glucose 120, anion gap 11, calcium 7.8, albumin 2.6. White count 13.9, hemoglobin 12, hematocrit 35.4, with a platelet count of 69,000. PHYSICAL EXAMINATION: General: This is an 86-year-old white male. He is resting quietly in bed. He is in no acute distress. Skin: Warm and dry. HEENT: Normocephalic, atraumatic. Conjunctivae pale. He has RADHA. Mucous membranes are moist. Neck: Supple. Trachea midline. No JVD. Cardiovascular: Regular rate and rhythm. He has a soft gallop. No murmur appreciated. Lungs: Clear to auscultation anteriorly. Equal excursion. He does remain on O2. Abdomen: Large, round, soft, nontender. Positive bowel sounds. Extremities: Continues with 3+ lower extremity edema with chronic venous stasis present. Integumentary: No rashes or lesions evident. Neurological: Alert and oriented x3. ASSESSMENT AND PLAN: 1. Acute kidney injury secondary to sepsis with acute pyelonephritis and obstructed left ureter. Patient does remain in a negative fluid balance. He is eating today. His creatinine remains stable. No further intervention indicated. 2. Electrolytes and acid-base balance. These remain stable. 3. Anemia. This is at target. 4. Sepsis with urinary tract infection. Patient remains on renal dosed antibiotics. I would like to thank you for allowing us to follow with this patient. Dictated by JHONATAN Mejia for Stefano Mejia MD Patient seen, data reviewed, discussed with Bernardo Moralez on 02/23/17. I agree with the above assessment and plan of care. cc: JHONATAN Mejia MD [facility]
--- NOTE | 2017-02-23 17:01 | PROGRESS NOTE ---
DATE: 02/23/2017 SUBJECTIVE: Mr. Pate has a UTI with E. coli per culture, caused by a blockage in the left ureter. He had resulting bacteremia. MEDICATIONS: Cefepime has been discontinued and patient is now on Levaquin p.o. PHYSICAL EXAMINATION: Vital Signs: Temperature 98.3 degrees, heart rate of 52 , respiratory rate 14, blood pressure 132/61. Chest x-ray is stable. No infiltrates. Blood cultures x2 are pending from yesterday. IV site to the right groin, no redness, edema or drainage noted to the triple-lumen catheter. Generally: Patient is awake and alert. He is obese, but otherwise healthy-appearing elderly male in no acute distress. Lungs: Clear. Diminished in the bases bilaterally. Cardiovascular: He is in a slow regular rate and rhythm with a sinus bradycardia in the 50s. Abdomen: Soft and nontender. Denies any flank pain. He has 1+ lower extremity edema bilaterally. He has some weakness to his lower extremities, but has been able to get up and walk short distances in the hallway. LABORATORIES AND RADIOLOGY: CBC shows WBC count of 13.9, hemoglobin of 12, platelet count of 69,000, creatinine of 2. GFR 32. ASSESSMENT AND PLAN: We will continue Levaquin assuming the blood cultures are negative. He will have a total of 14 days of treatment from the 1st day of negative cultures per Dr. Chandler Tolliver. COMORBIDITIES: Mr. Pate is elderly and has had a renal calculi. Discussed the patient's plan of care with Dr. Chandler Tolliver. Dictated by JHONATAN Montalvo for Chandler Tolliver MD cc: JHONATAN Montalvo MD [facility]
[2017-02-23] MEDS: HYTRIN PO SCH (22:15)
[2017-02-23] MEDS: ZOCOR PO SCH (22:15)
[2017-02-24] MEDS: ATROVENT NEB INH SCH ×6 (03:25→23:06)
[2017-02-24] MEDS: XOPENEX NEB INH SCH ×6 (03:25→23:06)
--- NOTE | 2017-02-24 03:32 | PROGRESS NOTE ---
DATE: 02/23/2017 Based on my nurse practitioner Raven Garcia's data she is collecting and based on a physical exam I have performed, I have developed a plan of treatment to continue Levaquin for 13 more days after today which is being dictated currently by my nurse practitioner Raven Garcia. cc: Chandler Tolliver MD
[2017-02-24] MEDS: SYNTHROID PO SCH (06:23)
[2017-02-24 06:58] LABS: ALBUMIN 3.1 g/dL (3.5-5.0); CALCIUM 8.1 mg/dL (8.8-10.2); POTASSIUM 3.6 mmol/L (3.5-5.1); TOTAL BILIRUBIN 1.13 mg/dL (0.20-1.00); TOTAL PROTEIN 6.1 g/dL (6.3-8.3)
[2017-02-24 07:21] LABS: HEMATOCRIT 38.8 % (42.0-52.0); MCH 33.6 PG (27-31); MCHC 33.5 g/dL (33-37); MCV 100.3 FL (81-99); MPV 13.6 FL (7.4-10.4); RBC 3.87 XMIL (4.7-6.1)
--- NOTE | 2017-02-24 07:33 | Diag Imaging Result Doc PS360 ---
CHEST-PORTABLE - 02/24/2017 INDICATION: respiratory failure TECHNIQUE: COMPARISON: 02/23/2017 FINDINGS: Stable moderately low lung volumes. The lungs are clear. Heart size and mediastinal contours are normal. No pneumothorax or pleural effusion. IMPRESSION: Negative exam. Electronically signed by Tesfaye Quevedo 02/24/2017 7:30 AM
[2017-02-24] MEDS: RANEXA PO SCH ×2 (09:10→21:33)
[2017-02-24] MEDS: VESICARE PO SCH ×2 (09:10→21:33)
[2017-02-24] MEDS: ZOLOFT PO SCH (09:10)
[2017-02-24] MEDS: AVODART PO SCH (09:10)
[2017-02-24] MEDS: LOPRESSOR PO SCH ×2 (09:10→21:33)
[2017-02-24] MEDS: FLOMAX PO SCH (09:10)
[2017-02-24] MEDS: LEVAQUIN PO SCH (09:10)
[2017-02-24] MEDS: HEPARIN SUBQ SCH ×2 (09:11→21:33)
--- NOTE | 2017-02-24 15:39 | PROGRESS NOTE ---
DATE: 02/24/2017 SUBJECTIVE: An 86-year-old with worsening confusion, weakness, and fever. He states he is a patient of Dr. Casey Peres. An 86-year-old with past medical history of hypertension and hypothyroidism, benign prostatic hypertrophy, coronary artery disease, possible congestive heart failure, hyperlipidemia, brought in on 02/17/2017 by his . Noticed that he became more progressively weak over the last 7 days. He was treated on 3 separate occasions for urinary tract infection, three different antibiotics. He was noted to have more confusion in the last week before admission and he came into the emergency room. On arrival, his blood pressure was 90s systolic. The patient developed a fever in the emergency room, so, he was admitted with urinary tract infection, early sepsis, [id number] kidney injury, hypertensive heart and kidney disease, coronary artery disease, dementia. Dr. Anand Pate has been following. Dr. Tolliver has been following. The patient had gram-negative lorenzo urinary tract infection with associated bacteremia due to the presence of a left ureteral stone. Dr. Anand Pate consulted on 02/17/2017, and they placed a left double-J stent and had left extracorporeal shockwave lithotripsy. Overall, he has done better. His feels like he has done better. OBJECTIVE: Exam today, temperature 98 degrees, pulse 60, respirations 18, blood pressure 119/52. Pupils are equal and round. Lungs are clear in all lung montesinos. Cardiovascular: Regular rhythm and rate. I can appreciate some rales, but he still has a little bit of cough and rales at the peripheral of both lungs but no wheezing. Urine output was over 3 L. LABORATORY DATA: White count 12,100. Hematocrit was 38. Platelet count 88,000. Sodium 142, potassium 3.6, chloride 100. BUN 54. Creatinine 2.0. Note, that when he came in, his creatinine was 4.2, it was the highest. ASSESSMENT AND PLAN: 1. Acute respiratory failure. The patient is improved requiring 2 L of O2. Still wears a CPAP, I think, at night. He been on Lasix for volume overload, and chest x-ray was done this morning. Chest x-ray negative exam. Stable moderately low lung volumes. Lungs are clear. Heart size and mediastinal contours are normal. 2. Septic shock secondary to urinary tract infection. This has resolved. Continue present antibiotics. Dr. Tolliver is following. 3. Pyelonephritis secondary to Escherichia coli and suspect he had a stone as well. 4. Acute kidney injury. Renal function is improving. Continue present fluids. 5. Baseline dementia. 6. Benign prostatic hypertrophy. 7. Ureterolithiasis on the left. Hydronephrosis status post double-J stent. The patient is stable. Continue present measures. 8. New onset of atrial fibrillation with rapid ventricular response. Cardiology has followed and they put him on metoprolol 25 mg twice a day. His rate appears to be controlled. 9. Physical deconditioning and weakness. Continue physical therapy. Dr. Mejia is following, Dr. Bradley Garcia, Dr. Janes Perdomo, Dr. Chandler Tolliver, Dr. Akil Pate, Dr. Ja Brumfield. Review of orders: He is on heparin 5000 units subcutaneously q.12, Levaquin 500 mg a day, Ranexa 500 mg b.i.d., metoprolol 25 mg b.i.d., Zocor 40 mg at bedtime, VESIcare 5 mg b.i.d., tamsulosin 0.4 mg daily, and Hytrin 10 mg daily. cc: Shaji Gya MD
--- NOTE | 2017-02-24 15:57 | PROGRESS NOTE ---
DATE: 02/24/2017 PRESENT ILLNESS: The patient has Escherichia coli urinary tract infection which was the origin of the Escherichia coli bacteremia. MEDICATIONS: The patient is on Levaquin which was started yesterday. This is day 2 of treatment that started after the patient had negative blood cultures. PHYSICAL EXAMINATION: Vital Signs: Temperature is 98.6 degrees, pulse 66, respirations 17, blood pressure 127/61. General: This is an obese this is an ill-appearing elderly male. He is in no acute distress. Lungs: Clear to auscultation. Cardiovascular: Regular heart rate. Abdomen and flank soft and nontender. Neurologic: Patient is awake. He can move his extremities. He has been up walking. LABORATORY DATA AND X-RAY: The patient's CBC shows a white count of 12,100; hemoglobin 13, platelet count 88,000 creatinine is 2.1. GFR is 30. Chest x-ray shows clear lung montesinos. ASSESSMENT AND PLAN: The patient has Escherichia coli urinary track with bacteremia. I plan to continue Levaquin for a total of 14 days. He has already had the first day of treatment, therefore, he has 13 days left. COMORBIDITIES: He is elderly. He has renal calculi. cc: Chandler Tolliver MD
--- NOTE | 2017-02-24 16:42 | PROGRESS NOTE ---
DATE: 02/24/2017 TIME SEEN: 08:15 SUBJECTIVE: Mr. Pate is currently resting in bed. He states that he is feeling fine. He is currently on his CPAP. They are taking it off to put him on his O2. He denies any chest pain, increased work of breathing. OBJECTIVE: His vital signs: Temperature 98.9 degrees, blood pressure 154/65, heart rate 58, respirations 18. He is on 2 L nasal cannula. Last recorded saturation 96%. He has had 680 in, 3500 out per Jose catheter. LABORATORY DATA: Sodium 142, potassium 3.6, chloride 100, CO2 31, BUN 54, creatinine 2.1 glucose 132, anion gap 11, calcium 8.1, albumin 3.1. White count 12.1, hemoglobin 13, hematocrit 38.8, platelet count 88,000. Blood cultures are negative after 72 hours. PHYSICAL EXAMINATION: General: This is an 86-year-old white male. He is currently resting in bed. He appears chronically ill. He is in no acute distress. Skin: Warm and dry. HEENT: Normocephalic, atraumatic. Conjunctivae pale. He has RADHA. Mucous membranes are moist. Neck: Supple. Trachea midline. No JVD. Cardiovascular: Regular rate and rhythm. He has a soft gallop. No murmur appreciated. Lungs: Clear to auscultation anteriorly. Equal excursion. He is on O2. Abdomen: Large obese soft, nontender. Positive bowel sounds. Genitourinary: Not inspected. Patient has Jose catheter. Adequate urine out. Extremities: Continues with 3+ lower extremity edema with chronic venous stasis present. Integumentary: No rashes or lesions evident. Neurological: Alert and oriented x3. ASSESSMENT AND PLAN: 1. Acute kidney injury secondary to sepsis with acute pyelonephritis and obstructed left ureter. Patient's creatinine continues to slowly improve on a daily basis, down to 2.6 today. No indications for intervention. 2. Electrolytes. These remain stable. 3. Acid-base balance. This is stable. 4. Anemia. This is in target. 5. Sepsis. Patient remains on renal dosed antibiotics for urinary tract infection. I would like to thank you for allowing us to follow with this patient. Dictated by JHONATAN Mejia for Stefano Mejia MD Patient seen, data reviewed, discussed with Bernardo Moralez on 02/24/17. I agree with the above assessment and plan of care. cc: JHONATAN Mejia MD MTDD
[2017-02-24] MEDS: ZOCOR PO SCH (21:33)
[2017-02-24] MEDS: HYTRIN PO SCH (21:33)
[2017-02-25] MEDS: ATROVENT NEB INH SCH ×6 (03:21→22:42)
[2017-02-25] MEDS: XOPENEX NEB INH SCH ×6 (03:21→22:42)
--- NOTE | 2017-02-25 06:32 | Diag Imaging Result Doc PS360 ---
EXAM: CHEST-PORTABLE HISTORY: respiratory failure TECHNIQUE: Portable AP COMPARISON: 02/24/2017 FINDINGS: Poor inspiratory effort. No pleural effusions identified. Heart is not enlarged. Questionable mild vascular distention. No consolidation. The overall appearance is quite similar to that of the prior exam. IMPRESSION: Stable chest Electronically signed by Josue Bryan 02/25/2017 6:30 AM
[2017-02-25] MEDS: SYNTHROID PO SCH (06:42)
[2017-02-25 06:50] LABS: HEMATOCRIT 35.7 % (42.0-52.0); HEMOGLOBIN 11.9 g/dL (14.0-18.0); MCH 33.6 PG (27-31); MCHC 33.3 g/dL (33-37); MCV 100.8 FL (81-99); MPV 13.4 FL (7.4-10.4); RBC 3.54 XMIL (4.7-6.1)
[2017-02-25 07:25] LABS: ALBUMIN 2.7 g/dL (3.5-5.0); CALCIUM 8.1 mg/dL (8.8-10.2); POTASSIUM 3.6 mmol/L (3.5-5.1); TOTAL BILIRUBIN 0.79 mg/dL (0.20-1.00); TOTAL PROTEIN 5.9 g/dL (6.3-8.3)
[2017-02-25] MEDS: HEPARIN SUBQ SCH ×2 (09:20→22:02)
[2017-02-25] MEDS: AVODART PO SCH (09:21)
[2017-02-25] MEDS: LEVAQUIN PO SCH (09:21)
[2017-02-25] MEDS: ZOLOFT PO SCH (09:21)
[2017-02-25] MEDS: LOPRESSOR PO SCH ×2 (09:21→22:02)
[2017-02-25] MEDS: RANEXA PO SCH ×2 (09:21→22:02)
[2017-02-25] MEDS: VESICARE PO SCH ×2 (09:21→22:02)
[2017-02-25] MEDS: FLOMAX PO SCH (09:21)
[2017-02-25] MEDS ORDERED: MILK OF MAGNESIA PO ONE (12:06)
--- NOTE | 2017-02-25 12:55 | DISCHARGE SUMMARY ---
ADMISSION DATE: 02/17/2017 DISCHARGE DATE: HOSPITAL COURSE: He is a patient of Dr. Casey Peres. He presented on 02/17/2017 with worsening condition, weakness, and fever. He is an 86-year-old with a past medical history of hypertension, hypothyroidism, benign prostatic hypertrophy, coronary artery disease, possible congestive heart failure, hyperlipidemia, who was brought in on 02/17/2017. He noticed that he became progressively weak over the last 7 days or so. He had been treated on 3 separate occasions for urinary tract infection, 3 different antibiotics. While he was here, he was noted to be more confused, and he was sent from the office. By the time he got to the car, they had noted he had a fever, and he was sent over here to the hospital. The patient developed fever on arrival to the ER. No chills, fortunately, at the time. There was nobody at the bedside, but his has been very attentive. His mouth is very dry. He was admitted with urinary tract infection, urinary sepsis, [id number] kidney disease, hypertension, and coronary artery disease with underlying dementia, benign prostatic hypertrophy, hyperlipidemia, urolithiasis, and left hydronephrosis. On 02/17/2017, he had fluoroscopy cysto, and they placed a left ureteral stent. Stone extracted, I believe. The patient was on antibiotics, followed by Dr. Tolliver, Infectious Disease. Gram- negative urinary tract infection and associated bacteremia in the presence of left ureter stone which was removed and stent placed. He developed some respiratory difficulty and respiratory failure. CT scan of the abdomen and pelvis revealed an 8 mm stone which caused hydronephrosis, perinephric edema, and a double-J stent had been placed. He had acute hypoxemic respiratory failure and he was put on supplementary O2. He showed steady improvement. Infection and fever improved. Chest x-ray on 02/20/2017: Lung volumes were low but pulmonary venous congestion mild, and they continued to work on his respiratory status with some pulmonary venous hypertension. Chest x-ray repeated on 02/24/2017 looked much better and his breathing status continued to improve. Chest x-ray today shows very stable chest, poor inspiratory effort. No pleural effusion. He is very weak, but he is eating. The urine apparently looks still with some sediment. It is 4+ bacteria from 02/16/2017. We will check another urine. It felt like he is able to go to rehab. He will need to gain some strength and be able to ambulate before he will be able to go home. His cannot care for him at this point. He is high risk to fall and he needs a lot of help and a lot of physical therapy. We will try and discharge him on the following medications: 1. Avodart 0.5 mg a day. 2. Atrovent nebulizer q.4 hours as needed. 3. Xopenex q.4 hours as needed. 4. Levaquin. He is on 500 mg p.o. daily. We will continue that for another couple of weeks. 5. Synthroid 50 mcg p.o. daily. 6. Milk of Magnesia 30 mL as needed. 7. Lopressor 25 mg b.i.d. 8. MiraLAX 17 g p.o. q.a.m. or at bedtime. 9. Zoloft 50 mg a day. 10. Zocor 40 mg at bedtime. 11. VESIcare 5 mg b.i.d. 12. Flomax 0.4 mg a day. 13. Hytrin 10 mg at bedtime. We need to see if we can discontinue his Jose catheter and see what the status is but hope to get him to rehab today. cc: Shaji Gay MD
--- NOTE | 2017-02-25 12:56 | PROGRESS NOTE ---
DATE: 02/25/2017 ADDENDUM: He looks good. I am going to send another urine for culture. We need to discontinue his Jose catheter and see if he can void okay, so we will try and get him to rehab in the morning. Discharge papers and orders are ready. cc: Shaji Gay MD
[2017-02-25] MEDS ORDERED: LASIX IV ONE (14:35)
[2017-02-25 15:13] LABS: URINE SOURCE CATH
[2017-02-25 15:28] LABS: BILIRUBIN URINE NEGATIVE (NEGATIVE); BLOOD URINE LARGE (NEGATIVE); COLOR ORANGE; GLUCOSE URINE NEGATIVE (NEGATIVE); LEUKOCYTES URINE LARGE (NEGATIVE); NITRITE URINE NEGATIVE (NEGATIVE); PH URINE 5.5; PROTEIN URINE 100 mg/dL (NEGATIVE); SP GRAVITY URINE 1.018; TURBIDITY URINE TURBID (CLEAR); UR EPITHELIAL CELLS <10 /HPF (<10); URINE BACTERIA NEGATIVE /HPF; URINE CASTS NONE SEEN; URINE CULTURE NEEDED? YES; URINE MICRO REVIEW NEEDED? YES; URINE RBC TNTC /HPF (<10); URINE WBC TNTC /HPF (<10); UROBILINOGEN URINE NORMAL (NORMAL)
--- NOTE | 2017-02-25 15:57 | PROGRESS NOTE ---
DATE: 02/25/2017 TIME SEEN: 0725. SUBJECTIVE: Mr. Pate is resting quietly in bed. Head of the bed is elevated 90 degrees. He continues on his BiPAP this morning. States that he is having increased work of breathing. Denies nausea or chest pain. OBJECTIVE: Vital signs: His most recent vital signs, temperature 98.8 degrees , blood pressure 142/54, heart rate 65, respirations 20. He does remain on BiPAP. Last recorded saturation 95%. He has had 780 in, 1300 out per Jose catheter. General: This is an 86-year- old white male. He is currently resting in bed. He does appear in slight distress secondary to increased work of breathing. Skin: Warm and dry. HEENT: Normocephalic, atraumatic. Conjunctivae is pale. He has RADHA. Mucous membranes are dry. Neck: Supple. Trachea midline. Trace JVD. Cardiovascular: He is regular rate and rhythm. He has a soft gallop. No murmur appreciated. Lungs: Clear to auscultation anterior, though he has expiratory wheezing noted audible while on CPAP. Equal excursion. Abdomen: Large, obese, soft, nontender. Positive bowel sounds. Genitourinary: Not inspected. Jose catheter is in place. Adequate urine out. Extremities: Continues with 3+ edema. This is now up into his sacral hip area. Noted chronic venous stasis to lower extremities. No clubbing or cyanosis. Integumentary: No rashes or lesions noted. Neurological: Alert and oriented x3. DIAGNOSTIC DATA: His most recent laboratory, sodium is 142, potassium 3.6, chloride 101, CO2 29, BUN 51, creatinine 2.1. His glucose is 140. He has an anion gap of 12, calcium 8.1, albumin 2.7. His white count 10.34, hemoglobin 11.9, hematocrit 35.7, with a platelet count of 104,000. Chest x-ray this a.m. shows stable chest. ASSESSMENT AND PLAN: 1. Acute kidney injury secondary to sepsis with pyelonephritis and obstructed ureter. Patient's creatinine has not changed in 3 days. This may be his new baseline. We will continue to monitor. 2. Electrolytes. This is stable. 3. Acid-base balance. This remains stable. 4. Anemia. This remains stable. 5. Sepsis. Patient remains on renal-dosed antibiotics. 6. Increased work of breathing secondary to patient's trace JVD and increased work of breathing. We will add Lasix 100 mg IV today x 1 and evaluate laboratories in the a.m. I would to thank you for allowing us to follow with this patient. Dictated by JHONATAN Meija for Stefano Mejia MD Patient seen, data reviewed, discussed with Bernardo Moralez on 02/25/17. I agree with the above assessment and plan of care. cc: JHONATAN Mejia MD [facility]
--- NOTE | 2017-02-25 17:51 | PROGRESS NOTE ---
DATE: 02/25/2017 PRESENT ILLNESS: The patient has an E. coli bacteremia originating from an Escherichia coli urinary tract infection. MEDICATIONS: This is day 3 of treatment with p.o. Levaquin since the patient had negative blood cultures. PHYSICAL EXAMINATION: Vital Signs: Temperature is 97.9 degrees, pulse 67, respirations 17, blood pressure 117/47. General: This is an obese, somewhat ill-appearing, elderly man. He is in no acute distress. Cardiovascular: Heart rate is regular. Lungs: Clear to auscultation. Abdomen And flank: Soft and nontender. LABORATORY AND X-RAY: There is no new radiographic study. Urinalysis showed white cells, but no bacteria. Urine culture is pending. Creatinine is 2.1. GFR is 30. CBC shows a white count of 10,340, hemoglobin 11.9, and platelet count of 104,000. ASSESSMENT AND PLAN: 1. Patient has E. coli urinary tract infection with bacteremia. I plan to treat with Levaquin for a total of 14 days. This is day 3 of treatment. Therefore, he has 11 more days of treatment left. 2. Comorbidities: He is elderly and he also has renal calculi. cc: Chandler Tolliver MD
[2017-02-25] MEDS ORDERED: LASIX ONE (19:31)
[2017-02-25] MEDS ORDERED: MIRALAX PO SCH (21:00)
[2017-02-25] MEDS: HYTRIN PO SCH (22:02)
[2017-02-25] MEDS: ZOCOR PO SCH (22:02)
[2017-02-26] MEDS: XOPENEX NEB INH SCH ×4 (03:18→15:53)
[2017-02-26] MEDS: ATROVENT NEB INH SCH ×4 (03:18→15:53)
[2017-02-26] MEDS: SYNTHROID PO SCH (06:21)
[2017-02-26 06:49] LABS: HEMOGLOBIN 11.9 g/dL (14.0-18.0); MCH 33.5 PG (27-31); MCHC 33.1 g/dL (33-37); MCV 101.4 FL (81-99); MPV 13.2 FL (7.4-10.4); RBC 3.55 XMIL (4.7-6.1)
[2017-02-26 07:08] LABS: ALBUMIN 2.8 g/dL (3.5-5.0); CALCIUM 8.2 mg/dL (8.8-10.2); POTASSIUM 3.7 mmol/L (3.5-5.1); TOTAL BILIRUBIN 0.57 mg/dL (0.20-1.00); TOTAL PROTEIN 5.7 g/dL (6.3-8.3)
--- NOTE | 2017-02-26 07:40 | Diag Imaging Result Doc PS360 ---
EXAM: CHEST-PORTABLE INDICATION: respiratory failure TECHNIQUE: One view COMPARISON: 02/25/2017 FINDINGS: Inspiration is slightly better than the previous study. Bibasilar atelectasis seen previously has improved. Mild pulmonary venous congestion has also improved. No new consolidation is identified. Cardiac silhouette is stable. IMPRESSION: Interval improvement as described. Electronically signed by Joon Rosen 02/26/2017 7:38 AM
[2017-02-26] MEDS: AVODART PO SCH (09:23)
[2017-02-26] MEDS: LOPRESSOR PO SCH (09:24)
[2017-02-26] MEDS: FLOMAX PO SCH (09:24)
[2017-02-26] MEDS: LEVAQUIN PO SCH (09:24)
[2017-02-26] MEDS: ZOLOFT PO SCH (09:24)
[2017-02-26] MEDS: VESICARE PO SCH (09:24)
[2017-02-26] MEDS: HEPARIN SUBQ SCH (09:24)
[2017-02-26] MEDS: RANEXA PO SCH (09:24)
[2017-02-26] MEDS ORDERED: FLUZONE QUAD 2017-2018 SYRINGE IM ONE (10:32)
[2017-02-26 11:10] VITALS: BP 115/58
--- NOTE | 2017-02-26 11:47 | DISCHARGE SUMMARY ---
ADMISSION DATE: 02/17/2017 DISCHARGE DATE: 02/26/2017 ADDENDUM: Mr. Pate was kept in the hospital yesterday in order to remove his Jose and make sure that he could void after removal. Urinalysis that resulted yesterday on 02/25/2017 revealed that the patient still had a urinary tract infection. He will be discharged on Levaquin 500 mg p.o. daily. VITAL SIGNS: Are as follows: Temp 97.6 degrees, heart rate 48, respiratory rate 17. Blood pressure 112/79, 94% on 2 L nasal cannula. Dictated by JHONATAN Black for Grover Dunlap MD cc: Grover Dunlap MD
--- NOTE | 2017-02-26 11:57 | PROGRESS NOTE ---
DATE: 02/26/2017 SUBJECTIVE: Easy eating his breakfast. No nausea, vomiting, or shortness of breath. OBJECTIVE: Vital Signs: Blood pressure 112/79, heart rate 48, respirations 17, afebrile. Intake 750 mL. Output 1.2 L. General: No acute distress. Skin: Warm and dry. Conjunctivae are pink. Pupils are equal and round. Neck: Neck veins are not distended. Heart: Regular without gallops or murmurs. Lungs: Have equal breath sounds. No crackles. Abdomen: Soft, nontender. Bowel sounds present. Extremities: Have 2+ edema. No clubbing or cyanosis. LABORATORY DATA: Sodium 140, potassium 3.7, chloride 98, bicarbonate 30, BUN 54, creatinine 2.0, hemoglobin 11.9. IMPRESSION: Acute kidney injury. Creatinine has been stable over the last 5 days. Urine is still abnormal. He is on appropriate antibiotics to treat his pansensitive Escherichia coli. No changes. cc: Stefano Mejia MD
== END 2017-02-26 16:13 ==
LOC: ED 19:48 → EDIPHOLD 02-17 01:12 → SUATTDRO 02-17 01:12 → ICU 02-17 14:15 → 3S 02-20 16:32 → 3N 02-22 10:00
PROVIDERS: ATTEND Internal Medicine